=== PATIENT | male | born 1965 | race Caucasian/White ===

== ENCOUNTER 2017-04-29 13:11 | Inpatient (IN) | payer MEDICARE, MEDICAID ==
[2017-04-29] MEDS ORDERED: cefTRIAXone VIAL(*) 1,000 MG in NS 0.9% 50 ML* 50 ML IVPB SCH (13:21)
[2017-04-29] MEDS ORDERED: Acetaminophen TAB* 325 MG PO PRN (14:29)
[2017-04-29] MEDS: Azithromycin IV(*) 500 MG in NS 0.9% 250 ML* 250 ML IVPB SCH (16:05)
[2017-04-29] MEDS: Metoprolol Tartrate TAB* 100 MG TAB PO SCH ×2 (16:05→21:19)
[2017-04-29] MEDS: NS 0.9% 1000 ML* 1,000 ML IV SCH (16:25)
[2017-04-29] MEDS ORDERED: Warfarin TAB(*) 5 MG PO ONE (17:00)
[2017-04-29] MEDS ORDERED: Phytonadione Oral Solution* 5 MG/25 ML UDC PO ONE (21:00)
[2017-04-29] MEDS: QUEtiapine TAB* 25 MG PO SCH (21:18)
[2017-04-29] MEDS: Acyclovir* 400 MG TAB PO SCH (21:18)
[2017-04-29] MEDS: Mirtazapine TAB* 15 MG PO SCH (21:22)
[2017-04-29] MEDS ORDERED: NS 0.9% IV ONE (21:30)
[2017-04-29] MEDS ORDERED: PHYTONADIONE IV ONE (21:30)
[2017-04-30] MEDS: NS 0.9% 1000 ML* 1,000 ML IV SCH ×3 (00:42→17:40)
[2017-04-30 07:46] LABS: Hematocrit 29 % (42-52); Hemoglobin 9.4 g/dl (14.0-18.0); Mean Corpuscular HGB Conc 33 g/dl (31-36); Mean Corpuscular Hemoglobin 27 pg (27-31); Mean Corpuscular Volume 82 fL (80-94); Mean Platelet Volume 7 um3 (7.4-10.4); Red Blood Count 3.49 10^6/ul (4.0-5.4); Red Cell Distribution Width 16 % (10.5-15); White Blood Count 10.2 10^3/ul (3.5-10.8)
--- NOTE | 2017-04-30 07:46 | PN ---
Progress Note - Progress Note Date of Service: 04/30/17 SOAP: Subjective: feels better than yesterday. still coughing, more greenish today. eyes feel much better though. mild nose bleed last night, stopped quickly (INR 12 and received vitamin k). urine still dark. Objective: Vital Signs Temp Pulse Resp BP Pulse Ox 97.9 F 75 16 150/78 95 04/30/17 03:48 04/30/17 04:01 04/30/17 07:19 04/30/17 04:01 04/30/17 03:48 sitting up in nad perr eomi op dry rhonchi throughout, greater at left base s1 s2 nl soft nt +Bs no le edema A+O x 3, nonfocal neurological exam Laboratory Results - last 24 hr 04/29/17 04/29/17 04/29/17 16:30 16:30 16:30 INR (Anticoag Therapy) 11.04 H* APTT 90.2 H Lactic Acid 0.9 Uric Acid 7.5 04/29/17 19:22 INR (Anticoag Therapy) 12.86 H* APTT Lactic Acid Uric Acid Acetaminophen (Tylenol Tab*) 650 mg PO Q6H PRN PRN Reason: fever or pain Acyclovir (Zovirax Tab*) 400 mg PO BID COUNTS INCLUDE 234 BEDS AT THE [facility] Last Admin: 04/29/17 21:18 Dose: 400 mg Digoxin (Lanoxin Tab*) 0.0625 mg PO DAILY COUNTS INCLUDE 234 BEDS AT THE [facility] Sodium Chloride (Ns 0.9% 1000 Ml*) 1,000 mls @ 150 mls/hr IV PER RATE COUNTS INCLUDE 234 BEDS AT THE [facility] Last Admin: 04/30/17 00:42 Dose: 150 mls/hr Azithromycin 500 mg/ Sodium (Chloride) 250 mls @ 250 mls/hr IVPB Q24H COUNTS INCLUDE 234 BEDS AT THE [facility] Last Admin: 04/29/17 16:05 Dose: Not Given Ceftriaxone Sodium 1,000 mg/ (Dextrose) 50 mls @ 200 mls/hr IVPB DAILY@1300 COUNTS INCLUDE 234 BEDS AT THE [facility] Metoprolol Tartrate (Lopressor Tab*) 100 mg PO TID COUNTS INCLUDE 234 BEDS AT THE [facility] Last Admin: 04/29/17 21:19 Dose: 100 mg Mirtazapine (Remeron Tab*) 15 mg PO BEDTIME COUNTS INCLUDE 234 BEDS AT THE [facility] Last Admin: 04/29/17 21:22 Dose: 15 mg Omeprazole (Prilosec Cap*) 20 mg PO DAILY COUNTS INCLUDE 234 BEDS AT THE [facility] Pharmacy Profile Note (Coumadin Per Pharmacy*) 0 note FOLLOW UP .PER PHARMACY PROTOC COUNTS INCLUDE 234 BEDS AT THE [facility] PRN Reason: Protocol Quetiapine Fumarate (Seroquel Tab*) 25 mg PO BEDTIME COUNTS INCLUDE 234 BEDS AT THE [facility] Last Admin: 04/29/17 21:18 Dose: 25 mg Sertraline HCl (Zoloft*) 50 mg PO DAILY COUNTS INCLUDE 234 BEDS AT THE [facility] Assessment: 52 yo M w amyloidosis sp autoSCT now on maintenance velcade (renal failure precluding revlimid) presenting with fatigue, cough, weakness and dark urine and found to have acute on chronic renal failure, leukocytosis and coagulopathy. Though this is most consistent with a viral syndrome, he is significantly immunocompromised and I do agree with antibiotics for now. I would also like to get a flu swab. Plan: PNA: clinically appears to have a viral PNA or URI. CXR clear yesterday but rhonchorous on exam. will repeat xray today. notably procalcitonin slightly elevated and crp markedly elevated yesterday so reasonable to cover for bacterial sources -cont ceftriaxone and azithromycin -flu swab -urine strep and legionella Ags h/o afib: supratherapeutic INR sp vitamin K 1 mg IV and 5 mg po will recheck today, may need FFP cont digoxin and lopressor acute on chronic renal failure: likely prerenal given infection and poor PO intake agree with renal consultation, prior patient of Dr. Daniel cont hydration monitor urine output closely DNR but would try trial of intubation
[2017-04-30 08:05] LABS: BUN/Creatinine Ratio 12.6 (8-20); Calcium 8.8 mg/dL (8.6-10.3); EGFR African American 18.7 (>60); EGFR Non-African American 14.5 (>60); Globulin 2.9 g/dL (2-4); Total Bilirubin 0.3 mg/dL (0.2-1.0); Total Protein 5.9 g/dL (6.4-8.9)
[2017-04-30] MEDS: Digoxin TAB* 0.125 MG PO SCH (09:02)
[2017-04-30] MEDS: Sertraline* 50 MG TAB PO SCH (09:04)
[2017-04-30] MEDS: Metoprolol Tartrate TAB* 100 MG TAB PO SCH ×3 (09:04→21:11)
[2017-04-30] MEDS: Omeprazole CAP* 20 MG PO SCH (09:04)
[2017-04-30] MEDS: Acyclovir* 400 MG TAB PO SCH ×2 (09:04→21:10)
[2017-04-30 09:46] LABS: Digoxin 0.5 ng/ml (0.8-2.0)
--- NOTE | 2017-04-30 09:58 | RAD ---
INDICATION: Cough. Question pneumonia. History of myocardial infarction. Renal failure. COMPARISON: April 29, 2017 and November 18, 2016 TECHNIQUE: Dual energy PA and routine lateral views of the chest were obtained. REPORT: Mild reticulonodular prominence of the interstitial markings at the bilateral lower lung zones new compared with the November 18, 2016 chest radiograph. Negative for focal pulmonary lesion, pleural effusion, pneumothorax. The heart, pulmonary vasculature, and mediastinal contours are unremarkable. IMPRESSION: The constellation of findings is suspicious for potential bronchopneumonia given the clinical context.
[2017-04-30] MEDS: cefTRIAXone VIAL(*) 1,000 MG in D5W 50 ML BAG* 50 ML IVPB SCH (13:07)
[2017-04-30 13:26] LABS: Magnesium 1.8 mg/dL (1.9-2.7); Phosphorus 4.1 mg/dL (2.5-5.0)
[2017-04-30 14:13] LABS: Renal Sodium Excretion 1.29 %
[2017-04-30] MEDS: Azithromycin IV(*) 500 MG in NS 0.9% 250 ML* 250 ML IVPB SCH (14:33)
[2017-04-30] MEDS: Warfarin TAB(*) 2.5 MG PO SCH (17:14)
[2017-04-30] MEDS: QUEtiapine TAB* 25 MG PO SCH (21:10)
[2017-04-30] MEDS: Mirtazapine TAB* 15 MG PO SCH (21:11)
[2017-05-01] MEDS: NS 0.9% 1000 ML* 1,000 ML IV SCH ×3 (02:18→17:52)
[2017-05-01 05:56] LABS: Hematocrit 26 % (42-52); Hemoglobin 8.6 g/dl (14.0-18.0); Mean Corpuscular HGB Conc 33 g/dl (31-36); Mean Corpuscular Hemoglobin 27 pg (27-31); Mean Corpuscular Volume 83 fL (80-94); Mean Platelet Volume 7 um3 (7.4-10.4); Red Blood Count 3.13 10^6/ul (4.0-5.4); Red Cell Distribution Width 16 % (10.5-15); White Blood Count 7.8 10^3/ul (3.5-10.8)
[2017-05-01 06:51] LABS: Albumin 2.7 g/dL (3.2-5.2); Calcium 8.5 mg/dL (8.6-10.3); EGFR African American 19.3 (>60); Globulin 2.5 g/dL (2-4); Potassium 4.1 mmol/L (3.5-5.0); Total Bilirubin 0.2 mg/dL (0.2-1.0); Total Protein 5.2 g/dL (6.4-8.9)
--- NOTE | 2017-05-01 09:19 | PN ---
Progress Note - Progress Note Date of Service: 05/01/17 SOAP: Subjective: []Feeling very well, much better than on admission. Urine output improved overnight and a lot less dark. Has been walking around unit without difficulty. Eating well and drinking fluids. No pain. Normal BMs. Medications: Acetaminophen (Tylenol Tab*) 650 mg PO Q6H PRN PRN Reason: fever or pain Acyclovir (Zovirax Tab*) 400 mg PO BID [facility] Last Admin: 04/30/17 21:10 Dose: 400 mg Digoxin (Lanoxin Tab*) 0.0625 mg PO DAILY [facility] Last Admin: 04/30/17 09:02 Dose: 0.0625 mg Sodium Chloride (Ns 0.9% 1000 Ml*) 1,000 mls @ 150 mls/hr IV PER RATE [facility] Last Admin: 05/01/17 02:18 Dose: 150 mls/hr Azithromycin 500 mg/ Sodium (Chloride) 250 mls @ 250 mls/hr IVPB Q24H [facility] Last Admin: 04/30/17 14:33 Dose: 250 mls/hr Ceftriaxone Sodium 1,000 mg/ (Dextrose) 50 mls @ 200 mls/hr IVPB DAILY@1300 [facility] Last Admin: 04/30/17 13:07 Dose: 200 mls/hr Metoprolol Tartrate (Lopressor Tab*) 100 mg PO TID [facility] Last Admin: 04/30/17 21:11 Dose: 100 mg Mirtazapine (Remeron Tab*) 15 mg PO BEDTIME [facility] Last Admin: 04/30/17 21:11 Dose: 15 mg Omeprazole (Prilosec Cap*) 20 mg PO DAILY [facility] Last Admin: 04/30/17 09:04 Dose: 20 mg Quetiapine Fumarate (Seroquel Tab*) 25 mg PO BEDTIME [facility] Last Admin: 04/30/17 21:10 Dose: 25 mg Sertraline HCl (Zoloft*) 50 mg PO DAILY [facility] Last Admin: 04/30/17 09:04 Dose: 50 mg Warfarin Sodium (Coumadin Tab(*)) 2.5 mg PO DAILY@1700 [facility] PRN Reason: Protocol Last Admin: 04/30/17 17:14 Dose: 2.5 mg Objective: [] Vital Signs Temp Pulse Resp BP Pulse Ox 97.7 F 62 16 155/81 97 05/01/17 07:54 05/01/17 07:54 05/01/17 07:54 05/01/17 07:54 05/01/17 07:54 A&Ox3 HRR, S1S2, no murmur noted LS with rhonchi left lower lobe, right clear +BS, abd. soft and non-tender +PP=bilat., no edema noted Urine yellow, clear Laboratory Results - last 24 hr 04/30/17 04/30/17 04/30/17 07:39 12:27 12:35 WBC RBC Hgb Hct MCV MCH MCHC RDW Plt Count MPV Neut % (Auto) Lymph % (Auto) Crowley % (Auto) Eos % (Auto) Baso % (Auto) Absolute Neuts (auto) Absolute Lymphs (auto) Absolute Monos (auto) Absolute Eos (auto) Absolute Basos (auto) Absolute Nucleated RBC Nucleated RBC % INR (Anticoag Therapy) Sodium 135 137 Potassium 4.0 Chloride 108 Carbon Dioxide 16 L Anion Gap 11 BUN 54 H Creatinine 4.29 H 4.41 H Est GFR ( Amer) 18.7 Est GFR (Non-Af Amer) 14.5 BUN/Creatinine Ratio 12.6 Glucose 106 H Calcium 8.8 Phosphorus 4.1 Magnesium 1.8 L Total Bilirubin 0.30 AST 11 L ALT 11 Alkaline Phosphatase 89 Total Protein 5.9 L Albumin 3.0 L Globulin 2.9 Albumin/Globulin Ratio 1.0 Ur Random Creatinine 95.48 Ur Random Sodium 39 Renal Sodium Excretion 1.29 Digoxin 0.5 L Influenza A (Rapid) Negative Influenza B (Rapid) Negative 05/01/17 05/01/17 05/01/17 05:31 05:31 05:31 WBC 7.8 RBC 3.13 L Hgb 8.6 L Hct 26 L MCV 83 MCH 27 MCHC 33 RDW 16 H Plt Count 180 MPV 7 L Neut % (Auto) 77.2 Lymph % (Auto) 11.6 L Crowley % (Auto) 7.4 Eos % (Auto) 3.3 Baso % (Auto) 0.5 Absolute Neuts (auto) 6.0 Absolute Lymphs (auto) 0.9 L Absolute Monos (auto) 0.6 Absolute Eos (auto) 0.3 Absolute Basos (auto) 0 Absolute Nucleated RBC 0 Nucleated RBC % 0.1 INR (Anticoag Therapy) 3.04 H Sodium 136 Potassium 4.1 Chloride 111 Carbon Dioxide 15 L Anion Gap 10 BUN 50 H Creatinine 4.16 H Est GFR ( Amer) 19.3 Est GFR (Non-Af Amer) 15.0 BUN/Creatinine Ratio 12.0 Glucose 98 Calcium 8.5 L Phosphorus Magnesium Total Bilirubin 0.20 AST 14 ALT 13 Alkaline Phosphatase 85 Total Protein 5.2 L Albumin 2.7 L Globulin 2.5 Albumin/Globulin Ratio 1.1 Ur Random Creatinine Ur Random Sodium Renal Sodium Excretion Digoxin Influenza A (Rapid) Influenza B (Rapid) Intake & Output 04/29/17 04/30/17 05/01/17 05/02/17 06:59 06:59 06:59 06:59 Intake Total 2488 3068 Output Total 1350 1400 300 Balance 1138 1668 -300 Weight 192 lb 12.8 oz 196 lb 12.8 oz Intake: IV Fluids 2036 2348 NS (0.9%) 20368 IVPB 51 320 ABX - AZITHROMYCIN 320 phytonadione 51 Oral 400 400 Output: Urine 1350 1400 300 Other: Estimated Void Medium Large # Bowel Movements 0 0 # Voids 0 1 Assessment: []52 yo male admitted with Haemophilus Influenzae Pneumonia and acute on chronic renal failure that appears to be pre-renal, compensatory d/t resp. dysfunction, although urine sodium excretion is just >1. Slight improvement in renal function with hydration, notable improvement in resp. status on IV abx. Expect cont.'d improvement. Plan: []1. Pneumonia: cont. IV abx., dual therapy until sputum culture final. 2. Renal Failure: cont. IV fluids, enc. PO intake, follow I&Os, daily labs 3. Anti-coagulation: cont. daily INR, 2.5 mg warfarin tonight
[2017-05-01] MEDS: Digoxin TAB* 0.125 MG PO SCH (09:25)
[2017-05-01] MEDS: Sertraline* 50 MG TAB PO SCH (09:26)
[2017-05-01] MEDS: Omeprazole CAP* 20 MG PO SCH (09:26)
[2017-05-01] MEDS: Metoprolol Tartrate TAB* 100 MG TAB PO SCH ×3 (09:26→22:40)
[2017-05-01] MEDS: Acyclovir* 400 MG TAB PO SCH ×2 (09:26→22:39)
[2017-05-01] MEDS: cefTRIAXone VIAL(*) 1,000 MG in D5W 50 ML BAG* 50 ML IVPB SCH (13:51)
[2017-05-01] MEDS: Azithromycin IV(*) 500 MG in NS 0.9% 250 ML* 250 ML IVPB SCH (14:53)
[2017-05-01] MEDS: Warfarin TAB(*) 2.5 MG PO SCH (17:04)
[2017-05-01] MEDS: Nicotine GUM* 2 MG PO PRN (17:57)
[2017-05-01] MEDS: QUEtiapine TAB* 25 MG PO SCH (22:40)
[2017-05-01] MEDS: Mirtazapine TAB* 15 MG PO SCH (22:41)
[2017-05-02] MEDS: NS 0.9% 1000 ML* 1,000 ML IV SCH (02:50)
[2017-05-02] MEDS: Nicotine Patch Removal NOTE FOLLOW UP SCH (06:13)
[2017-05-02 07:16] LABS: Hematocrit 24 % (42-52); Mean Corpuscular HGB Conc 33 g/dl (31-36); Mean Corpuscular Hemoglobin 28 pg (27-31); Mean Corpuscular Volume 83 fL (80-94); Mean Platelet Volume 7 um3 (7.4-10.4); Red Cell Distribution Width 16 % (10.5-15); White Blood Count 7.6 10^3/ul (3.5-10.8)
[2017-05-02 07:19] LABS: Albumin 2.7 g/dL (3.2-5.2); BUN/Creatinine Ratio 10.1 (8-20); Calcium 8.4 mg/dL (8.6-10.3); EGFR African American 20.5 (>60); EGFR Non-African American 15.9 (>60); Globulin 2.3 g/dL (2-4); Phosphorus 4.6 mg/dL (2.5-5.0); Potassium 4.2 mmol/L (3.5-5.0); Total Bilirubin 0.2 mg/dL (0.2-1.0)
[2017-05-02 07:25] LABS: Add Diff/Slide Review? Slide Review Added; Comments Flag Yes
--- NOTE | 2017-05-02 08:36 | PN ---
Progress Note - Progress Note Date of Service: 05/02/17 SOAP: Subjective: feels better every day. 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 cough improving. Objective: Vital Signs Temp Pulse Resp BP Pulse Ox 98.3 F 59 18 158/85 97 05/02/17 08:08 05/02/17 08:08 05/02/17 08:08 05/02/17 08:08 05/02/17 08:08 sitting up in nad left eye deviated op moist CTA bl s1 s 2nl soft nt +Bs no le edema A+O x 3, nonfocal neurological exam Laboratory Results - last 24 hr 05/02/17 05/02/17 05/02/17 06:33 06:33 06:33 WBC 7.6 RBC 2.90 L Hgb 8.0 L Hct 24 L MCV 83 MCH 28 MCHC 33 RDW 16 H Plt Count 177 MPV 7 L Neut % (Auto) 78.2 Lymph % (Auto) 11.6 L Hale % (Auto) 6.3 Eos % (Auto) 3.4 Baso % (Auto) 0.5 Absolute Neuts (auto) 5.9 Absolute Lymphs (auto) 0.9 L Absolute Monos (auto) 0.5 Absolute Eos (auto) 0.3 Absolute Basos (auto) 0 Absolute Nucleated RBC 0 Nucleated RBC % 0 INR (Anticoag Therapy) 3.55 H Sodium 136 Potassium 4.2 Chloride 113 H Carbon Dioxide 14 L* Anion Gap 9 BUN 40 H Creatinine 3.96 H Est GFR ( Amer) 20.5 Est GFR (Non-Af Amer) 15.9 BUN/Creatinine Ratio 10.1 Glucose 98 Calcium 8.4 L Phosphorus 4.6 Total Bilirubin 0.20 AST 11 L ALT 12 Alkaline Phosphatase 80 Total Protein 5.0 L Albumin 2.7 L Globulin 2.3 Albumin/Globulin Ratio 1.2 Acetaminophen (Tylenol Tab*) 650 mg PO Q6H PRN PRN Reason: fever or pain Acyclovir (Zovirax Tab*) 400 mg PO BID [facility] Last Admin: 05/01/17 22:39 Dose: 400 mg Digoxin (Lanoxin Tab*) 0.0625 mg PO DAILY [facility] Last Admin: 05/01/17 09:25 Dose: 0.0625 mg Azithromycin 500 mg/ Sodium (Chloride) 250 mls @ 250 mls/hr IVPB Q24H [facility] Last Admin: 05/01/17 14:53 Dose: 250 mls/hr Ceftriaxone Sodium 1,000 mg/ (Dextrose) 50 mls @ 200 mls/hr IVPB DAILY@1300 [facility] Last Admin: 05/01/17 13:51 Dose: 200 mls/hr Sodium Bicarbonate 100 meq/ (Sodium Chloride) 1,000 mls @ 150 mls/hr IV PER RATE [facility] Magnesium Oxide (Magox 400 Tab*) 400 mg PO DAILY [facility] Metoprolol Tartrate (Lopressor Tab*) 100 mg PO TID [facility] Last Admin: 05/01/17 22:40 Dose: 100 mg Mirtazapine (Remeron Tab*) 15 mg PO BEDTIME [facility] Last Admin: 05/01/17 22:41 Dose: 15 mg Nicotine (Nicotine Patch 21 Mg/24 Hr*) 1 patch TRANSDERM DAILY@0800 [facility] Nicotine Polacrilex (Nicotine Gum*) 2 mg PO Q2H PRN PRN Reason: CRAVING Last Admin: 05/01/17 17:57 Dose: 2 mg Omeprazole (Prilosec Cap*) 20 mg PO DAILY [facility] Last Admin: 05/01/17 09:26 Dose: 20 mg Pharmacy Profile Note (Nicotine Patch Removal Note*) 1 note FOLLOW UP 0600 [facility] Last Admin: 05/02/17 06:13 Dose: Not Given Quetiapine Fumarate (Seroquel Tab*) 25 mg PO BEDTIME [facility] Last Admin: 05/01/17 22:40 Dose: 25 mg Sertraline HCl (Zoloft*) 50 mg PO DAILY [facility] Last Admin: 05/01/17 09:26 Dose: 50 mg Warfarin Sodium (Coumadin Tab(*)) 2.5 mg PO DAILY@1700 [facility] PRN Reason: Protocol Last Admin: 05/01/17 17:04 Dose: 2.5 mg Assessment: 52 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 Plan: Renal failure: discussed with Dr. Daniel by phone this am. will change fluids to 1/2NS w 2 amps sodium bicarbonate to buffer kidneys. will add magnesium oxide] cont to monitor urine output haemophilus influenza PNA: cont ceftriaxone and azithro clinically improving afib: rate controlled on digoxin and metoprolol cont warfarin 2.5 mg daily check inr tomorrow anemia: baseline anemia from amyloidosis and marrow transplant worsened by hydration will transfuse 1 unit today DNR but would be intubated
[2017-05-02] MEDS: Acyclovir* 400 MG TAB PO SCH ×2 (08:47→21:13)
[2017-05-02] MEDS: Omeprazole CAP* 20 MG PO SCH (08:47)
[2017-05-02] MEDS: Magnesium Oxide TAB* 400 MG PO SCH (08:48)
[2017-05-02] MEDS: Digoxin TAB* 0.125 MG PO SCH (08:48)
[2017-05-02] MEDS: Sertraline* 50 MG TAB PO SCH (08:48)
[2017-05-02] MEDS: Metoprolol Tartrate TAB* 100 MG TAB PO SCH ×3 (08:48→21:13)
[2017-05-02] MEDS: Nicotine PATCH 21 MG/24 HR* PATCH TRANSDERM SCH (08:49)
[2017-05-02] MEDS ORDERED: SODIUM BICARBONATE IV SCH ×2 (09:00)
[2017-05-02] MEDS ORDERED: NS IV SCH ×2 (09:00)
[2017-05-02] MEDS ORDERED: Sodium Bicarbonate (ANTACID)* 650 MG TAB PO SCH (09:00)
[2017-05-02] MEDS: cefTRIAXone VIAL(*) 1,000 MG in D5W 50 ML BAG* 50 ML IVPB SCH (12:58)
[2017-05-02] MEDS: Azithromycin IV(*) 500 MG in NS 0.9% 250 ML* 250 ML IVPB SCH (13:28)
[2017-05-02] MEDS: Sodium Bicarbonate 8.4% IV* 100 MEQ in NS 0.45% 1000 ML BAG* 1,000 ML IV SCH ×3 (15:11→22:26)
[2017-05-02] MEDS: Mirtazapine TAB* 15 MG PO SCH (21:13)
[2017-05-02] MEDS: QUEtiapine TAB* 25 MG PO SCH (21:13)
[2017-05-03] MEDS: Sodium Bicarbonate 8.4% IV* 100 MEQ in NS 0.45% 1000 ML BAG* 1,000 ML IV SCH ×2 (05:43→15:16)
[2017-05-03] MEDS: Nicotine Patch Removal NOTE FOLLOW UP SCH (05:44)
[2017-05-03 07:17] LABS: Hematocrit 27 % (42-52); Hemoglobin 9.2 g/dl (14.0-18.0); Mean Corpuscular HGB Conc 34 g/dl (31-36); Mean Corpuscular Hemoglobin 28 pg (27-31); Mean Corpuscular Volume 81 fL (80-94); Mean Platelet Volume 7 um3 (7.4-10.4); Red Blood Count 3.35 10^6/ul (4.0-5.4); Red Cell Distribution Width 15 % (10.5-15); White Blood Count 8.1 10^3/ul (3.5-10.8)
[2017-05-03 07:21] LABS: Add Diff/Slide Review? Slide Review Added; Comments Flag Yes
[2017-05-03 07:29] LABS: Albumin 2.8 g/dL (3.2-5.2); BUN/Creatinine Ratio 10.5 (8-20); Calcium 8.2 mg/dL (8.6-10.3); EGFR African American 22.7 (>60); EGFR Non-African American 17.6 (>60); Globulin 2.5 g/dL (2-4); Phosphorus 4.3 mg/dL (2.5-5.0); Potassium 3.9 mmol/L (3.5-5.0); Total Bilirubin 0.3 mg/dL (0.2-1.0); Total Protein 5.3 g/dL (6.4-8.9)
[2017-05-03] MEDS: Omeprazole CAP* 20 MG PO SCH (08:04)
[2017-05-03] MEDS: Sertraline* 50 MG TAB PO SCH (08:04)
[2017-05-03] MEDS: Acyclovir* 400 MG TAB PO SCH ×2 (08:04→22:35)
[2017-05-03] MEDS: Metoprolol Tartrate TAB* 100 MG TAB PO SCH ×3 (08:04→22:34)
[2017-05-03] MEDS: Magnesium Oxide TAB* 400 MG PO SCH (08:04)
[2017-05-03] MEDS: Digoxin TAB* 0.125 MG PO SCH (08:04)
[2017-05-03] MEDS: Nicotine PATCH 21 MG/24 HR* PATCH TRANSDERM SCH (08:05)
[2017-05-03] MEDS: Nicotine GUM* 2 MG PO PRN (11:33)
--- NOTE | 2017-05-03 11:45 | PN ---
Subjective Date of Service: 05/03/17 Interval History: Pt felt lousy last night as everytime he turned on his side he was bringing up phlegm. Now feels much better after that improved. Rubbed right eye, now bruised. INR to 2.9. [employer] improved to 3.62, positive 3.5L. Hypertensive occ to 190s last night. Walking. Urine now clear. Objective Active Medications: Acetaminophen (Tylenol Tab*) 650 mg PO Q6H PRN PRN Reason: fever or pain Acyclovir (Zovirax Tab*) 400 mg PO BID [facility] Last Admin: 05/03/17 08:04 Dose: 400 mg Digoxin (Lanoxin Tab*) 0.0625 mg PO DAILY [facility] Last Admin: 05/03/17 08:04 Dose: 0.0625 mg Azithromycin 500 mg/ Sodium (Chloride) 250 mls @ 250 mls/hr IVPB Q24H [facility] Last Admin: 05/02/17 13:28 Dose: 250 mls/hr Ceftriaxone Sodium 1,000 mg/ (Dextrose) 50 mls @ 200 mls/hr IVPB DAILY@1300 [facility] Last Admin: 05/02/17 12:58 Dose: 200 mls/hr Sodium Bicarbonate 100 meq/ (Sodium Chloride) 1,100 mls @ 150 mls/hr IV Q7H [facility] Last Admin: 05/03/17 05:43 Dose: 150 mls/hr Magnesium Oxide (Magox 400 Tab*) 400 mg PO DAILY [facility] Last Admin: 05/03/17 08:04 Dose: 400 mg Metoprolol Tartrate (Lopressor Tab*) 100 mg PO TID [facility] Last Admin: 05/03/17 08:04 Dose: 100 mg Mirtazapine (Remeron Tab*) 15 mg PO BEDTIME [facility] Last Admin: 05/02/17 21:13 Dose: 15 mg Nicotine (Nicotine Patch 21 Mg/24 Hr*) 1 patch TRANSDERM DAILY@0800 [facility] Last Admin: 05/03/17 08:05 Dose: 1 patch Nicotine Polacrilex (Nicotine Gum*) 2 mg PO Q2H PRN PRN Reason: CRAVING Last Admin: 05/03/17 11:33 Dose: 2 mg Omeprazole (Prilosec Cap*) 20 mg PO DAILY [facility] Last Admin: 05/03/17 08:04 Dose: 20 mg Pharmacy Profile Note (Nicotine Patch Removal Note*) 1 note FOLLOW UP 0600 [facility] Last Admin: 05/03/17 05:44 Dose: 1 note Quetiapine Fumarate (Seroquel Tab*) 25 mg PO BEDTIME [facility] Last Admin: 05/02/17 21:13 Dose: 25 mg Sertraline HCl (Zoloft*) 50 mg PO DAILY [facility] Last Admin: 05/03/17 08:04 Dose: 50 mg Vital Signs 05/02/17 05/02/17 05/02/17 12:56 12:59 15:57 Temperature 98.1 F 98.1 F 97.8 F Pulse Rate 54 51 57 Respiratory 16 16 Rate Blood Pressure 176/88 174/90 (mmHg) O2 Sat by Pulse 100 99 99 Oximetry 05/02/17 05/02/17 05/02/17 19:46 19:51 23:11 Temperature 97.8 F 97.5 F Pulse Rate 53 53 Respiratory 18 18 16 Rate Blood Pressure 192/95 178/90 190/95 (mmHg) O2 Sat by Pulse 99 99 Oximetry 05/02/17 05/03/17 05/03/17 23:19 03:37 07:15 Temperature Pulse Rate 54 Respiratory 16 Rate Blood Pressure 174/80 159/72 156/83 (mmHg) O2 Sat by Pulse 96 Oximetry 05/03/17 05/03/17 07:58 08:00 Temperature 98.3 F Pulse Rate 52 Respiratory 21 20 Rate Blood Pressure (mmHg) O2 Sat by Pulse 98 Oximetry Oxygen Devices in Use Now: None Appearance: NAD, sitting up in bed. Eyes: No Scleral Icterus, - - bloodshot right medial eye with bruising of skin around. strabismus left eye Ears/Nose/Mouth/Throat: NL Teeth, Lips, Gums, Clear Oropharnyx Neck: NL Appearance and Movements; NL JVP Respiratory: Symmetrical Chest Expansion and Respiratory Effort, Clear to Auscultation Cardiovascular: NL Sounds; No Murmurs; No JVD, RRR Abdominal: NL Sounds; No Tenderness; No Distention Extremities: No Edema, No Clubbing, Cyanosis Skin: No Rash or Ulcers, No Nodules or Sclerosis Neurological: Alert and Oriented x 3 Result Diagrams: 05/03/17 06:37 05/03/17 06:37 Additional Lab and Data: Laboratory Results - last 24 hr 05/02/17 05/03/17 05/03/17 06:33 06:37 06:37 WBC 8.1 RBC 3.35 L Hgb 9.2 L Hct 27 L MCV 81 MCH 28 MCHC 34 RDW 15 Plt Count 201 MPV 7 L Neut % (Auto) 81.4 Lymph % (Auto) 9.5 L [place] % (Auto) 5.8 Eos % (Auto) 2.6 Baso % (Auto) 0.7 Absolute Neuts (auto) 6.6 Absolute Lymphs (auto) 0.8 L Absolute Monos (auto) 0.5 Absolute Eos (auto) 0.2 Absolute Basos (auto) 0.1 Absolute Nucleated RBC 0 Nucleated RBC % 0 INR (Anticoag Therapy) 2.92 H Sodium Potassium Chloride Carbon Dioxide Anion Gap BUN Creatinine Est GFR ( Amer) Est GFR (Non-Af Amer) BUN/Creatinine Ratio Glucose Calcium Phosphorus Total Bilirubin AST ALT Alkaline Phosphatase Total Protein Albumin Globulin Albumin/Globulin Ratio Blood Type AB Negative Antibody Screen Negative Crossmatch See Detail 05/03/17 06:37 WBC RBC Hgb Hct MCV MCH MCHC RDW Plt Count MPV Neut % (Auto) Lymph % (Auto) [place] % (Auto) Eos % (Auto) Baso % (Auto) Absolute Neuts (auto) Absolute Lymphs (auto) Absolute Monos (auto) Absolute Eos (auto) Absolute Basos (auto) Absolute Nucleated RBC Nucleated RBC % INR (Anticoag Therapy) Sodium 137 Potassium 3.9 Chloride 110 Carbon Dioxide 19 L Anion Gap 8 BUN 38 H Creatinine 3.62 H Est GFR ( Amer) 22.7 Est GFR (Non-Af Amer) 17.6 BUN/Creatinine Ratio 10.5 Glucose 99 Calcium 8.2 L Phosphorus 4.3 Total Bilirubin 0.30 AST 11 L ALT 12 Alkaline Phosphatase 76 Total Protein 5.3 L Albumin 2.8 L Globulin 2.5 Albumin/Globulin Ratio 1.1 Blood Type Antibody Screen Crossmatch Microbiology and Other Data: Microbiology 04/29/17 16:30 Blood Venous Aerobic Blood Culture - Preliminary No Growth Day 3 04/29/17 16:30 Blood Venous Anaerobic Blood Culture - Preliminary No Growth Day 3 04/30/17 12:27 Urine Legionella Urinary Antigen - Final Negative Legionella 04/30/17 12:27 Urine Streptococcus pneumoniae Ag Screen - Final Negative S. pneumo Antigen 04/29/17 16:27 Urine Legionella Urinary Antigen - Final Negative Legionella 04/29/17 16:27 Urine Streptococcus pneumoniae Ag Screen - Final Negative S. pneumo Antigen 04/30/17 12:27 Nasal Influenza Types A,B Antigen (BERNARD) - Final Specimen received for Influenza A/B Molecular testing Assess/Plan/Problems-Billing Assessment: 52 yo PMH amyloidosis s/p autologous bone marrow transplant presenting with BRAVO on CKD, H Influenza pneumonia. H Influenze PNA - improving on azithromycin, ceftriaxone. BRAVO on CKD, resolved to baseline [employer] , acidosis improved - f/u Dr. Daniel recs - will decrease IVF from 150 to 50cc/hr for now. was 3.5L positive and hypertensive (prn hydralazine added) Afib - continue digoxin and metoprolol 100mb TID - INR to 2.9, restart 2.5mg coumadin tomorrow, INR daily Anemia 2/2 amyloidosis and aggressive IVF - s/p 1u prbc with good response CODE: DNR dispo: possible d/c tomorrow. Attending: Riki Ortega
[2017-05-03] MEDS ORDERED: hydrALAZINE IV* 20 MG/ML VIAL IV SLOW PU PRN (11:58)
[2017-05-03] MEDS: cefTRIAXone VIAL(*) 1,000 MG in D5W 50 ML BAG* 50 ML IVPB SCH (12:51)
[2017-05-03] MEDS: Azithromycin IV(*) 500 MG in NS 0.9% 250 ML* 250 ML IVPB SCH (14:08)
[2017-05-03] MEDS: QUEtiapine TAB* 25 MG PO SCH (22:35)
[2017-05-03] MEDS: Mirtazapine TAB* 15 MG PO SCH (22:35)
[2017-05-04] MEDS: Nicotine Patch Removal NOTE FOLLOW UP SCH (05:39)
[2017-05-04 05:50] LABS: Hematocrit 27 % (42-52); Hemoglobin 9.1 g/dl (14.0-18.0); Mean Corpuscular HGB Conc 34 g/dl (31-36); Mean Corpuscular Hemoglobin 28 pg (27-31); Mean Corpuscular Volume 81 fL (80-94); Mean Platelet Volume 7 um3 (7.4-10.4); Red Blood Count 3.33 10^6/ul (4.0-5.4); Red Cell Distribution Width 15 % (10.5-15); White Blood Count 8.4 10^3/ul (3.5-10.8)
[2017-05-04 05:52] LABS: Add Diff/Slide Review? Slide Review Added; Comments Flag Yes
[2017-05-04 06:07] LABS: Albumin 2.8 g/dL (3.2-5.2); BUN/Creatinine Ratio 10.2 (8-20); Calcium 8.3 mg/dL (8.6-10.3); EGFR African American 22.1 (>60); EGFR Non-African American 17.2 (>60); Globulin 2.4 g/dL (2-4); Phosphorus 4.4 mg/dL (2.5-5.0); Potassium 3.6 mmol/L (3.5-5.0); Total Bilirubin 0.3 mg/dL (0.2-1.0); Total Protein 5.2 g/dL (6.4-8.9)
[2017-05-04] MEDS: Omeprazole CAP* 20 MG PO SCH (10:19)
[2017-05-04] MEDS: Acyclovir* 400 MG TAB PO SCH (10:19)
[2017-05-04] MEDS: Digoxin TAB* 0.125 MG PO SCH (10:20)
[2017-05-04] MEDS: Magnesium Oxide TAB* 400 MG PO SCH (10:20)
[2017-05-04] MEDS: Sertraline* 50 MG TAB PO SCH (10:20)
[2017-05-04] MEDS: Metoprolol Tartrate TAB* 100 MG TAB PO SCH ×2 (10:20→13:57)
[2017-05-04] MEDS: Nicotine PATCH 21 MG/24 HR* PATCH TRANSDERM SCH (10:20)
--- NOTE | 2017-05-04 10:51 | DS ---
- Discharge Summary Admission Date: 04/29/17 Discharge Date: 05/04/17 Discharge Diagnosis: 1. Haemophilus Influenzae Pneumonia: improving, home on PO abx. 2. Acute on Chronic Renal Failure: felt to compensatory, returning to baseline 3. Multiple Myeloma: post autologous bone marrow transplant, therapy on hold for now Discharge Medications: 1. Augmentin 250 mg PO BID x4 days to complete 10 days of abx. 2. [id number] mg PO [id number] PRN fever or pain 3. Magnesium Oxide 400 mg PO daily 4. Nicotine junior 2 mg PO q2hrs PRN cravings 5. Nicotine patch 21 mg transdermal [id number] 6. Metoprolol Tartrate 100 mg PO TID 7. Quetiapine 25 mg PO qHS 8. Acyclovir 400 mg PO BID 9. Omeptrazole 20 mg PO qAM 10. Mirtazapine 15 mg PO qHS 11. Warfarin 5 mg PO q1700 12. Sertraline 50 mg PO daily 13. Rosuvastatin 20 mg PO daily 14. Cholecalciferol 1,000 u PO daily 15. Tramadol 50 mg PO q6hrs PRN pain 16. Digoxin 62.5mcg PO daily Hospital Course: Please see admission not for full H&P, however briefly Mr. Mccurdy is well known to our service d/t his unfortunate diagnosis of amloydosis now s/p Autologous bone marrow transplant. He had very poor tolerance of revlimid maintenance and most recently had started Velcade injections per recommendations from his transplant team. He presented to the office on feeling poorly over several days and new onset very dark, concentrated urine. In the office he was diagnosed with pneumonia clinically, though the chest x-ray was read as negative. He had STAT labs that revealed acute (on chronic) renal failure and he was admitted to the hospital for IV antibiotics and hydration. In the office he received his first dose of IV Ceftriaxone and Azithromycin for community acquired pneumonia. Blood cultures obtained on admission had no growth. Sputum culture in the office was positive for Haemophilus Influenza. A repeat chest x-ray following hydration confirmed PNA. Over the next 3 days he improved clinically, however, his CO2 trended downward with a low of 14 on 05/02. This was ultimately felt to be a hyperchorlemic metabolic acidosis following aggressive hydration in the setting of what was felt to be pre-renal compensatory acute on chronic renal failure. In the setting of his underlying amloydosis there is a question of tubular disease and therefore per Dr. Rogers recommendation he was buffered with the addition of sodium bicarb. Within 24 hours his CO2 had improved to 19, however he was having increased difficulty lying flat and with substantial fluid excess his IV fluids were decreased and he has remained stable over the last 24 hours. At this time his Creatinine is near his baseline, his CO2 is 22, and he feels his breathing is very stable as well. Following todays dose of IV abx he has received a total of 6 days IV abx. and will be d/cd home with Augmentin 250 mg PO BID (renal dosing) to complete 10 days abx. He will follow-up in our office on 05/[address] Whelan to have repeat labs and determine further plan of care. He will be d/cd home without oral bi-carb per Dr. Rogers recommendation and has been counseled on good PO hydration as well as monitoring for any changes. He will call Dr. Daniel's office for follow-up in the next week or two. Plan of care was reviewed at length and all questions answered. >40 min spent with >50% face to face counseling
[2017-05-04 12:05] VITALS: BP 162/98
[2017-05-04] MEDS: Azithromycin IV(*) 500 MG in NS 0.9% 250 ML* 250 ML IVPB SCH (12:30)
[2017-05-04] MEDS: cefTRIAXone VIAL(*) 1,000 MG in D5W 50 ML BAG* 50 ML IVPB SCH (13:49)
[2017-05-04] MEDS: Sodium Bicarbonate 8.4% IV* 100 MEQ in NS 0.45% 1000 ML BAG* 1,000 ML IV SCH (14:59)
== END 2017-05-04 15:00 | disposition home or self-care (01) | DRG 194 ==
LOC: MED 15:09
PROVIDERS: ADMIT Internal Medicine Hematology & Oncology; ATTEND Internal Medicine Hematology & Oncology
PROC: 30233N1 Transfusion of Nonautologous Red Blood Cells into Peripheral Vein, Percutaneous Approach (ICD-10-PCS; principal; 2017-05-02)
DX: J10.08 Influenza due to other identified influenza virus with other specified pneumonia (principal); N17.9 Acute kidney failure, unspecified; N18.4 Chronic kidney disease, stage 4 (severe); E85.89 Other amyloidosis; Z94.81 Bone marrow transplant status; I48.91 Unspecified atrial fibrillation; J18.8 Other pneumonia, unspecified organism; Z66 Do not resuscitate; I12.9 Hypertensive chronic kidney disease with stage 1 through stage 4 chronic kidney disease, or unspecified chronic kidney disease; E78.5 Hyperlipidemia, unspecified; F17.220 Nicotine dependence, chewing tobacco, uncomplicated; D64.9 Anemia, unspecified; Z88.0 Allergy status to penicillin; Z88.8 Allergy status to other drugs, medicaments and biological substances; Z79.01 Long term (current) use of anticoagulants; Z79.899 Other long term (current) drug therapy; Z80.1 Family history of malignant neoplasm of trachea, bronchus and lung; Z80.41 Family history of malignant neoplasm of ovary; Z80.0 Family history of malignant neoplasm of digestive organs
CPT/HCPCS: 36415; 71020; 80053; 80162; 81003; 81015; 82570; 83605; 83735; 84100; 84145; 84300; 84550; 85025; 85610; 85730; 86140; 86850; 86900; 86901; 86922; 87040; 87070; 87205; 87502; 87899; 99223; 99232; 99233; 99239; A9270-GY; J0360; J0456; J0696; J3430; P9040

== ENCOUNTER 2017-10-16 08:07 | Emergency (ER) | payer MEDICARE, MEDICAID ==
[2017-10-16] MEDS ORDERED: fentaNYL* 50 MCG/ML 2 ML VIAL (100 MCG VIAL) ONE ×2 (08:11→08:22)
[2017-10-16] MEDS ORDERED: NS 0.9% 1000 ML*IV.FLUID IV ONE (08:13)
[2017-10-16] MEDS ORDERED: fentaNYL* 50 MCG/ML 2 ML VIAL (100 MCG VIAL) IV SLOW PU ONE ×5 (08:13→10:52)
--- NOTE | 2017-10-16 08:33 | RAD ---
HISTORY: Chest pain COMPARISONS: April 30, 2017 VIEWS: 1: frontal portable view of the chest at 8:20 AM. The left costophrenic angle is cut off. FINDINGS: LINES AND TUBES: None. CARDIOMEDIASTINAL SILHOUETTE: The cardiomediastinal silhouette is normal for portable technique. PLEURA: The right costophrenic angle is sharp. The left costophrenic angle is cut off. LUNG PARENCHYMA: The lungs are clear. ABDOMEN: The upper abdomen is clear. There is no subphrenic gas. BONES AND SOFT TISSUES: No bone or soft tissue abnormalities are noted. IMPRESSION: LIMITED STUDY. NO ACTIVE CARDIOPULMONARY DISEASE.
[2017-10-16 08:35] LABS: ABS Basophils 0.2 10^3/ul (0-0.2); ABS Eosinophils 0.3 10^3/ul (0-0.6); ABS Monocytes 0.7 10^3/ul (0-0.8); ABS Neutrophils 10.6 10^3/ul (1.5-7.7); ABS Nucleated RBC 0 10^3/ul; Eosinophil % 1.9 % (0-6); Hematocrit 18 % (42-52); Hemoglobin 5.9 g/dl (14.0-18.0); Lymphocyte % 20.4 % (25-47); Mean Corpuscular HGB Conc 33 g/dl (31-36); Mean Corpuscular Hemoglobin 29 pg (27-31); Mean Corpuscular Volume 89 fL (80-94); Mean Platelet Volume 7.4 um3 (7.4-10.4); Nucleated Red Blood Cells % 0; Platelet Count 319 10^3/ul (150-450); Red Blood Count 2.05 10^6/ul (4.0-5.4); Red Cell Distribution Width 17 % (10.5-15); White Blood Count 14.9 10^3/ul (3.5-10.8)
[2017-10-16 08:38] LABS: INR 1.08 (0.77-1.02)
[2017-10-16 08:47] LABS: EGFR Non-African American 10.6 (>60)
[2017-10-16] MEDS ORDERED: fentaNYL PCA* 20 ML PCA SCH (09:00)
[2017-10-16] MEDS ORDERED: KETAMINE HCL* 50 MG/ML 10 ML VIAL IV ONE (09:03)
--- NOTE | 2017-10-16 09:04 | RAD ---
Indication: Left flank pain and chest pain. CT of the chest, abdomen and pelvis was performed without IV contrast administration. Coronal and sagittal reconstructed images were obtained. The inferior thyroid lobes are unremarkable. No mediastinal or hilar adenopathy is noted. The heart demonstrates no pericardial effusion. There is no mediastinal or hilar adenopathy. The heart demonstrates moderate-sized pericardial effusion. Dilated esophagus is noted. Moderate left-sided pleural effusion is noted. Airspace disease in the left lower lobe is noted. Right basilar airspace disease and small right pleural effusion is noted. The liver is normal in size. No focal lesions or intrahepatic ductal dilatation is noted. Gallbladder demonstrates no calcified gallstones. The pancreas demonstrates no mass or pancreatic ductal dilatation. No adrenal masses are noted. There is a large perinephric hematoma with extensive stranding surrounding the left kidney. The fact size in the perinephric hematoma cannot be adequately evaluated due to lack of IV contrast. No dilated loops of bowel are noted. The colon is filled with stool. CT of the pelvis demonstrates retroperitoneal hematoma extending into the left pelvic sidewall. Urinary bladder is unremarkable. Moderate amount of free fluid is noted in the cul-de-sac. The fluid has a high density value of approximately 35 Hounsfield units. This may represent hemoperitoneum. The aorta demonstrates no evidence of abnormal dilatation. No aneurysmal dilatation is identified. Common and external iliac arteries are unremarkable. IMPRESSION: There is a moderate to large pericardial effusion. There is small to moderate left pleural effusion with likely atelectasis in left lower lobe. Small right pleural effusion is noted. There is a large left perinephric hematoma with extension of the hematoma into the pelvis. Patient status post left hip replacement. No evidence of aortic aneurysm is noted. Findings discussed with Dr. Aguilera at 9:01 AM
[2017-10-16] MEDS ORDERED: NS 0.9% 1000 ML* 1,000 ML IV ONE (10:13)
[2017-10-16] MEDS ORDERED: NS 0.9% 1000 ML* 2,000 ML IV ONE (10:20)
[2017-10-16] MEDS ORDERED: Lidocaine 2% JELLY* 6 ML JELLY TOPICAL ONE (10:52)
[2017-10-16 11:04] LABS: Hematocrit 13 % (42-52); Hemoglobin 4.1 g/dl (14.0-18.0)
[2017-10-16] MEDS ORDERED: HYDROmorphone INJ* 2 MG/ML CARPUJECT SYRINGE IV SLOW PU ONE (11:04)
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
[2017-10-16 12:19] VITALS: BP 112/71
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
== END 2017-10-16 11:57 | disposition short-term general hospital (02) ==
LOC: ED 08:07
DX: R57.1 Hypovolemic shock (principal); S37.012A Minor contusion of left kidney, initial encounter; E78.5 Hyperlipidemia, unspecified; I10 Essential (primary) hypertension; E85.9 Amyloidosis, unspecified; Z79.01 Long term (current) use of anticoagulants; N28.9 Disorder of kidney and ureter, unspecified; F17.290 Nicotine dependence, other tobacco product, uncomplicated; C90.00 Multiple myeloma not having achieved remission; I31.3 Pericardial effusion (noninflammatory); I25.9 Chronic ischemic heart disease, unspecified; I51.7 Cardiomegaly; Z87.828 Personal history of other (healed) physical injury and trauma; Z98.890 Other specified postprocedural states; X58.XXXA Exposure to other specified factors, initial encounter; Y92.9 Unspecified place or not applicable
CPT/HCPCS: 36415; 71045; 71250; 74176; 80053; 80162; 83605; 84484; 85014; 85018; 85025; 85610; 86850; 86900; 86901; 86905; 86922; 93005; 96360; 96374; 96375; 96376; 99284; 99285; J3010; P9016; P9040

== ENCOUNTER 2018-04-01 07:05 | Inpatient (IN) | payer MEDICARE, MEDICAID ==
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
[2018-04-01 08:45] LABS: Hematocrit 21 % (42-52); Hemoglobin 7.1 g/dl (14.0-18.0); Mean Corpuscular HGB Conc 33 g/dl (31-36); Mean Corpuscular Hemoglobin 31 pg (27-31); Mean Corpuscular Volume 94 fL (80-94); Platelet Count 101 10^3/ul (150-450); Red Blood Count 2.25 10^6/ul (4.00-5.40); Red Cell Distribution Width 15 % (10.5-15)
[2018-04-01] MEDS: NS 0.9% 1000 ML* 2,000 ML IV ONE (08:45)
[2018-04-01 09:01] LABS: EGFR Non-African American 7.5 (>60)
[2018-04-01 09:05] LABS: INR 1.18 (0.77-1.02)
--- NOTE | 2018-04-01 09:08 | RAD ---
HISTORY: SEPSIS COMPARISONS: April 30, 2017, CT dated October 16, 2017 VIEWS: 4: Frontal dual-energy and lateral views of the chest. FINDINGS: CARDIOMEDIASTINAL SILHOUETTE: The cardiomediastinal silhouette is normal. ALLI: The alli are normal. PLEURA: The costophrenic angles are sharp. No pleural abnormalities are noted. LUNG PARENCHYMA: There is been interval development of confluent alveolar opacification of the right upper lobe and right perihilar lung. ABDOMEN: The upper abdomen is clear. There is no subphrenic gas. BONES AND SOFT TISSUES: No bone or soft tissue abnormalities are noted. OTHER: None. IMPRESSION: RIGHT PERIHILAR AND UPPER LOBE CONSOLIDATION. RECOMMEND FOLLOW-UP UNTIL RESOLUTION TO EXCLUDE UNDERLYING PULMONARY PARENCHYMAL PATHOLOGY.
[2018-04-01] MEDS ORDERED: Cefepime 2 GM in Dextrose(*) 2 GM/50 ML BAG IV ONE (09:34)
[2018-04-01] MEDS ORDERED: Ciprofloxacin 400MG IVPREMIX(* 400 MG/200 ML BAG IVPB ONE (09:34)
[2018-04-01] MEDS ORDERED: NS 0.9% 1000 ML* 1,000 ML IV ONE (09:35)
[2018-04-01] MEDS ORDERED: Sodium Polystyrene ORAL.SOL* 15 GM/60 ML BTL PO ONE ×3 (09:39→17:22)
[2018-04-01 09:45] LABS: Urine Appearance Cloudy; Urine Blood 3+ (Negative); Urine Color Yellow; Urine Ketones Negative (Negative); Urine Protein 3+(>=500 mg/dL) (Negative); Urine Red Blood Cell 1+(3-5/hpf) (Absent); Urine Specific Gravity 1.012 (1.010-1.030); Urine Urobilinogen Negative (Negative); Urine White Blood Cell 1+(6-10/hpf) (Absent)
[2018-04-01] MEDS ORDERED: traMADol TAB* 50 MG PO ONE (10:25)
[2018-04-01] MEDS ORDERED: traMADol TAB* 50 MG ONE (10:26)
[2018-04-01] MEDS ORDERED: Calcium Gluconate INJ* 2 GM in NS 0.9% 100 ML* 100 ML IVPB ONE (10:52)
[2018-04-01 11:17] LABS: ABS Basophils 0 10^3/ul (0-0.2); ABS Eosinophils 0 10^3/ul (0-0.6); ABS Lymphocytes 0.3 10^3/ul (1.0-4.8); ABS Monocytes 0.4 10^3/ul (0-0.8); ABS Neutrophils 23.3 10^3/ul (1.5-7.7); ABS Nucleated RBC 0 10^3/ul; Eosinophil % 0.1 % (0-6); Lymphocyte % 1.3 % (25-47); Nucleated Red Blood Cells % 0
[2018-04-01] MEDS ORDERED: Morphine INJ* 4 MG/ML 1 ML SYRINGE (NEW SYRINGE VERSION) IV ONE (12:50)
[2018-04-01] MEDS ORDERED: Ondansetron INJ* 2 MG/ML VIAL IV ONE (12:50)
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
[2018-04-01] MEDS ORDERED: Albuterol 2.5 MG/3 ML NEB.SOL* (0.083%) INH PRN (13:57)
[2018-04-01 14:27] LABS: EGFR Non-African American 7.9 (>60)
[2018-04-01] MEDS: Azithromycin IV(*) 500 MG in NS 0.9% 250 ML* 250 ML IVPB SCH (14:51)
[2018-04-01] MEDS ORDERED: SODIUM BICARBONATE IV SCH ×2 (15:00)
[2018-04-01] MEDS ORDERED: D5W IV SCH ×2 (15:00)
[2018-04-01] MEDS ORDERED: D5W 1000 ML BAG* 850 ML with Sodium Bicarbonate 8.4% IV* 150 MEQ IV SCH ×2 (15:00)
[2018-04-01] MEDS ORDERED: oxyCODONE/Acetamin 5/325 MG* TAB PO ONE (15:24)
[2018-04-01] MEDS: Sodium Bicarbonate (ANTACID)* 650 MG TAB PO SCH ×2 (15:28→20:40)
[2018-04-01] MEDS ORDERED: cefTRIAXone(*) 1 GM in NS 0.9% 50 ML* 50 ML IVPB ONE (15:46)
[2018-04-01] MEDS: Sodium Bicarbonate 8.4% IV* 150 MEQ in D5W 1000 ML BAG* 1,000 ML IV SCH (15:55)
[2018-04-01] MEDS ORDERED: Morphine VIAL* 4 MG/ML VIAL (1 ml vial) IV PRN (17:22)
--- NOTE | 2018-04-01 17:36 | PN ---
Progress Note - Progress Note Date of Service: 04/01/18 Note: noted strept pneum ag + cont ceftriaxone; cont azithro till cultures neg tomorrow likely will be okay with just ceftriaxone 1gm daily x5 days. kenia frye
[2018-04-01] MEDS: Acyclovir* 400 MG TAB PO SCH (20:38)
[2018-04-01] MEDS: QUEtiapine TAB* 25 MG PO SCH (20:39)
[2018-04-01 20:42] LABS: Hematocrit 20 % (42-52); Hemoglobin 6.7 g/dl (14.0-18.0)
[2018-04-01 20:58] LABS: EGFR Non-African American 7.8 (>60)
[2018-04-02] MEDS: Sodium Bicarbonate 8.4% IV* 150 MEQ in D5W 1000 ML BAG* 1,000 ML IV SCH ×2 (05:09→15:33)
[2018-04-02 07:19] LABS: Hematocrit 23 % (42-52); Hemoglobin 7.6 g/dl (14.0-18.0); Mean Corpuscular HGB Conc 33 g/dl (31-36); Mean Corpuscular Hemoglobin 31 pg (27-31); Mean Corpuscular Volume 92 fL (80-94); Mean Platelet Volume 7.3 um3 (7.4-10.4); Platelet Count 89 10^3/ul (150-450); Red Blood Count 2.47 10^6/ul (4.00-5.40); Red Cell Distribution Width 16 % (10.5-15); White Blood Count 14.2 10^3/ul (3.5-10.8)
[2018-04-02] MEDS: Acyclovir* 400 MG TAB PO SCH (08:29)
[2018-04-02] MEDS: Sodium Bicarbonate (ANTACID)* 650 MG TAB PO SCH ×3 (08:30→21:50)
[2018-04-02] MEDS: Omeprazole CAP* 20 MG PO SCH (08:31)
[2018-04-02] MEDS: amLODIPine TAB* 5 MG PO SCH (08:31)
[2018-04-02] MEDS: Cholecalciferol TAB* 1000 UNITS PO SCH (08:31)
[2018-04-02] MEDS: Sertraline* 50 MG TAB PO SCH (08:32)
[2018-04-02] MEDS ORDERED: Cefepime ADVAN(*) 2 GM ADDV.VIAL IVPB SCH (09:00)
[2018-04-02] MEDS: Azithromycin IV(*) 500 MG in NS 0.9% 250 ML* 250 ML IVPB SCH (14:35)
--- NOTE | 2018-04-02 16:39 | ECHO ---
Patient: LUCIE MACKEY [facility] Rec#: [id number] : 1965 Date: 04/02/2018 Age: 52y Height: 180 cm / 70.9 in Weight: 89.6 kg / 197.5 lbs Sex: M BSA: 2.09 Room#: [facility] Admit Date#: 04/01/2018 Type: Inpatient Referring: Will Flores Reading: Myles Encarnacion MD Recorder Helper Seismograph: Ani Marin RN RDCS CC: Constantino Dawn MD Transthoracic Echocardiogram Indication: Bacteremia BP: 135/57 HR: 84 Rhythm: NSR Findings History: HTN, HLD, multiple myeloma, chemotherapy, amyloidosis Technical Comments: The study quality is fair. Completed at 1530. Left Ventricle: The left ventricular chamber size is normal. Moderate to severe concentric left ventricular hypertrophy is observed. There is a prominent septal knuckle.measuring 2.2 cm. There is turbulence and increased velocities in the LVOT. Global left ventricular wall motion and contractility are within normal limits. There is normal left ventricular systolic function. The estimated ejection fraction is greater than 65%. Abnormal left ventricular diastolic function is observed. The left ventricular diastolic filling pattern is consistent with pseudonormalization. Left Atrium: The left atrium is moderately dilated. Right Ventricle: The right ventricle wall thickness is mildly increased.,6 cm. The right ventricular cavity size is normal. The right ventricular global systolic function is normal. Right Atrium: The right atrium is mildly dilated. Aortic Valve: The aortic valve is trileaflet. The aortic valve leaflets are mildly thickened. There is aortic annular calcification. There is no evidence of aortic regurgitation. There is no evidence of aortic stenosis. There is no aortic vegetation present. Mitral Valve: The mitral valve leaflets are mildly thickened. Mitral valve leaflet mobility is mildly restricted. There is mild mitral regurgitation. There is borderline mitral stenosis. No vegetation is observed on the mitral valve. Tricuspid Valve: The tricuspid valve leaflets are normal. There is trace to mild tricuspid regurgitation. Unable to estimate the right ventricular systolic pressure. There is no tricuspid stenosis. No vegetation is observed on the tricuspid valve. Pulmonic Valve: The pulmonic valve appears normal. There is a trace pulmonic regurgitation. There is no pulmonic stenosis. No vegetation is observed on the pulmonic valve. Pericardium: A trivial pericardial effusion is visualized. There are no signs of significant hemodynamic compromise. Aorta: There is no dilatation of the ascending aorta. There is no dilatation of the aortic arch. There is no dilation of the aortic root. Pulmonary Artery: The main pulmonary artery appears normal. Venous: The inferior vena cava appears normal in size. There is a greater than 50% respiratory change in the inferior vena cava dimension. Conclusions Moderate to severe concentric left ventricular hypertrophy is observed. There is a prominent septal knuckle.measuring 2.2 cm. There is turbulence and increased velocities in the LVOT without significant obstruction. The estimated ejection fraction is greater than 65%. The left atrium is moderately dilated. The right ventricle wall thickness is mildly increased. The right atrium is mildly dilated. The aortic valve leaflets are mildly thickened. There is mild mitral regurgitation. The mitral valve leaflets are mildly thickened. Mitral valve leaflet mobility is mildly restricted. There is mild mitral regurgitation. There is trace to mild tricuspid regurgitation. A trivial pericardial effusion is visualized. There are no signs of significant hemodynamic compromise. Similar to 09/2017. Measurements Name Value Normal Range RVIDd (AP) 2D 3.2 cm (0.9 - 2.6) RVDdMajor (2D) 4.1 cm (2.2 - 4.4) RVAW (2D) 0.7 cm (0.2 - 0.5) RAd ISD 4CH 5.3 cm (3.4 - 4.9) RA (A4C)W 4.1 cm (2.9 - 4.6) IVSd (2D) 1.7 cm (0.6 - 1) LVPWd (2D) 1.7 cm (0.6 - 1) LVIDd (2D) 5 cm (3.6 - 5.4) LVIDs (2D) 2.6 cm - LV FS (2D) 48 % (25 - 45) Aortic Annulus 2.5 cm (1.4 - 2.6) Ao root diameter (2D) 3.3 cm (2.1 - 3.5) Ascending Ao 2.9 cm (2.1 - 3.4) Aortic arch 2.8 cm (1.8 - 3.4) LA dimension (AP) 2D 4.8 cm (2.3 - 3.8) LAd ISD 4CH 6.5 cm (2.9 - 5.3) LA ISD 4CH W 5.1 cm (2.5 - 4.5) Name Value Normal Range LA ESV BP (A/L) index 45 ml/m2 - Name Value Normal Range MV E-wave Vmax 1.3 m/sec - MV deceleration time 204 msec - MV A-wave Vmax 0.94 m/sec - MV E:A ratio 1.4 ratio - LV septal e' Vmax 0.06 m/sec - LV lateral e' Vmax 0.1 m/sec - LV E:e' septal ratio 21.7 ratio - LV E:e' lateral ratio 13 ratio - Name Value Normal Range AV Vmax 1.9 m/sec - AV VTI 45.6 cm - AV peak gradient 14 mmHg - AV mean gradient 8 mmHg - LVOT Vmax 1.5 m/sec - LVOT VTI 32.1 cm - LVOT peak gradient 8 mmHg - LVOT mean gradient 6 mmHg - MALENA Vmax 1.1 m/sec - Name Value Normal Range IVC diameter 1.7 cm - Name Value Normal Range PV Vmax 1.3 m/sec -
[2018-04-02] MEDS: cefTRIAXone(*) 1 GM in NS 0.9% 50 ML* 50 ML IVPB SCH (17:53)
--- NOTE | 2018-04-02 18:18 | PN ---
Subjective Date of Service: 04/02/18 Interval History: Pt seen and examined. Meds and labs reviewed. CC: N/A ROS: Denied MANNING/dizziness, F/C, N/V, CP, SOB, increased cough, sputum production , abd pain, diarrhea, constipation, dysuria, myalgias, arthralgias, throat pain , and new skin lesions. The rest of the 14 point ROS are unremarkable. PHYSICAL EXAM: GEN APPEARANCE: Awake, not in acute distress HEENT: NC/AT, PERRLA, moist oral mucosa, (-) throat erythema NECK: Soft, supple, (-) cervical LAD, (-)JVD HEART: S1S2 WNL, RRR, No MRG CHEST: CTA, BL, GAE, No W/R/R ABD: Soft, ND/NT, NABS 4x Q EXT: No C/C/E SKIN: Warm to touch PSYCH: No active psychosis, hallucinations, depression, SI/HI Objective Active Medications: Acyclovir (Zovirax Tab*) 200 mg PO BID [facility] Last Admin: 04/02/18 08:29 Dose: 200 mg Albuterol (Ventolin 2.5 Mg/3 Ml Neb.Anni*) 2.5 mg INH Q4H PRN PRN Reason: SOB/WHEEZING Amlodipine Besylate (Norvasc Tab*) 10 mg PO DAILY [facility] Last Admin: 04/02/18 08:31 Dose: 10 mg Cholecalciferol (Vitamin D Tab*) 2,000 units PO DAILY [facility] Last Admin: 04/02/18 08:31 Dose: 2,000 units Ceftriaxone Sodium 1 gm/ (Sodium Chloride) 50 mls @ 200 mls/hr IVPB Q24H [facility] Stop: 04/05/18 15:14 Last Admin: 04/02/18 17:53 Dose: 200 mls/hr Azithromycin 500 mg/ Sodium (Chloride) 250 mls @ 250 mls/hr IVPB Q24H [facility] Stop: 04/05/18 14:59 Last Admin: 04/02/18 14:35 Dose: 250 mls/hr Sodium Bicarbonate 150 meq/ (Dextrose) 1,150 mls @ 100 mls/hr IV Q11H [facility] Last Admin: 04/02/18 15:33 Dose: 100 mls/hr Morphine Sulfate (Morphine Vial*) 2 mg IV Q4H PRN PRN Reason: PAIN Omeprazole (Prilosec Cap*) 20 mg PO DAILY [facility] Last Admin: 04/02/18 08:31 Dose: 20 mg Quetiapine Fumarate (Seroquel Tab*) 25 mg PO BEDTIME [facility] Last Admin: 04/01/18 20:39 Dose: 25 mg Sertraline HCl (Zoloft*) 50 mg PO DAILY [facility] Last Admin: 04/02/18 08:32 Dose: 50 mg Sodium Bicarbonate (Sodium Bicarbonate (Antacid)*) 1,300 mg PO TID [facility] Last Admin: 04/02/18 14:35 Dose: 1,300 mg Vital Signs - 8 hr 04/02/18 04/02/18 11:49 15:27 Temperature 98.4 F 98.0 F Pulse Rate 94 89 Respiratory 16 20 Rate Blood Pressure 135/79 146/70 (mmHg) O2 Sat by Pulse 98 90 Oximetry Oxygen Devices in Use Now: Nasal Cannula Result Diagrams: 04/02/18 06:20 04/02/18 06:20 Microbiology and Other Data: Microbiology 04/02/18 12:12 Gram Stain - Final Sputum 04/01/18 08:30 Aerobic Blood Culture - Preliminary Blood Venous Anaerobic Blood Culture - Preliminary 04/01/18 08:27 Aerobic Blood Culture - Preliminary Blood Venous Anaerobic Blood Culture - Preliminary 04/01/18 08:49 Urine Culture - Final Urine 04/01/18 13:38 Stool Occult Blood (BERNARD) - Final Stool 04/01/18 16:23 Influenza Types A,B Antigen - Final Nasopharyngeal Specimen received for Influenza A/B Molecular testing 04/01/18 08:49 Legionella Urinary Antigen - Final Urine Negative Legionella Antigen Streptococcus pneumoniae Ag Screen - Final Positive S. Pneumo Antigen Assess/Plan/Problems-Billing Assessment: - Patient Problems (1) Pneumonia Current Visit: Yes Status: Acute Code(s): J18.9 - PNEUMONIA, UNSPECIFIED ORGANISM SNOMED Code(s): 591538031 Comment: -Continue Rocephin and Azithromycin -Urine Ag and blood culture: (+) S. pneumoniae---will await sensitivities -2Decho reveals diastolic dysfunction likely due to hypertensive heart disease; no wall motion abnormalities -Mildly elevated troponin likely due to demand -Will continue to trend troponin -Pt not normally on O2 at home but currently on 3L O2 NC (2) HTN (hypertension) Current Visit: Yes Status: Acute Code(s): I10 - ESSENTIAL (PRIMARY) HYPERTENSION SNOMED Code(s): 83694628 Comment: -Continue Amlodipine -continue watchful waiting (3) CKD (chronic kidney disease) Current Visit: Yes Status: Acute Code(s): N18.9 - CHRONIC KIDNEY DISEASE, UNSPECIFIED SNOMED Code(s): 961901480 Comment: -Likely multifactorial from hx of multiple myeloma with pernephric hematoma as well as HTN -Will consult renal on Thursday when they are available -D/W Dr. Flores (4) DVT prophylaxis Current Visit: No Status: Acute Code(s): XHW3662 - SNOMED Code(s): 147954885 Comment: -Continue SCDs Status and Disposition: -For PT eval
[2018-04-02] MEDS: QUEtiapine TAB* 25 MG PO SCH (21:50)
[2018-04-03] MEDS: Acyclovir* 400 MG TAB PO SCH ×3 (00:50→21:48)
[2018-04-03] MEDS: Sodium Bicarbonate 8.4% IV* 150 MEQ in D5W 1000 ML BAG* 1,000 ML IV SCH (00:52)
[2018-04-03 06:47] LABS: ABS Basophils 0.1 10^3/ul (0-0.2); ABS Eosinophils 0.4 10^3/ul (0-0.6); ABS Lymphocytes 0.4 10^3/ul (1.0-4.8); ABS Monocytes 0.4 10^3/ul (0-0.8); ABS Neutrophils 10.9 10^3/ul (1.5-7.7); ABS Nucleated RBC 0 10^3/ul; Eosinophil % 3.6 % (0-6); Hematocrit 23 % (42-52); Hemoglobin 7.9 g/dl (14.0-18.0); Mean Corpuscular HGB Conc 34 g/dl (31-36); Mean Corpuscular Hemoglobin 31 pg (27-31); Mean Corpuscular Volume 91 fL (80-94); Mean Platelet Volume 7.2 fL (7.4-10.4); Nucleated Red Blood Cells % 0; Platelet Count 112 10^3/ul (150-450); Red Blood Count 2.54 10^6/ul (4.00-5.40); Red Cell Distribution Width 15 % (10.5-15); White Blood Count 12.1 10^3/ul (3.5-10.8)
[2018-04-03 07:06] LABS: EGFR Non-African American 8.5 (>60)
[2018-04-03] MEDS: Sertraline* 50 MG TAB PO SCH (08:49)
[2018-04-03] MEDS: amLODIPine TAB* 5 MG PO SCH (08:49)
[2018-04-03] MEDS: Sodium Bicarbonate (ANTACID)* 650 MG TAB PO SCH ×3 (08:49→21:49)
[2018-04-03] MEDS: Cholecalciferol TAB* 1000 UNITS PO SCH (08:49)
[2018-04-03] MEDS: Omeprazole CAP* 20 MG PO SCH (08:50)
[2018-04-03] MEDS ORDERED: Magnesium Sulf 4 GM/100 ML IV* 4,000 MG/100 ML BAG IVPB ONE (10:00)
[2018-04-03] MEDS: Calcium Acetate CAP* 667 MG PO SCH ×2 (11:59→17:23)
[2018-04-03] MEDS: Azithromycin IV(*) 500 MG in NS 0.9% 250 ML* 250 ML IVPB SCH (14:27)
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
[2018-04-03] MEDS: cefTRIAXone(*) 1 GM in NS 0.9% 50 ML* 50 ML IVPB SCH (16:17)
[2018-04-03] MEDS: QUEtiapine TAB* 25 MG PO SCH (21:49)
[2018-04-04] MEDS: Sodium Bicarbonate (ANTACID)* 650 MG TAB PO SCH (08:39)
[2018-04-04] MEDS: Cholecalciferol TAB* 1000 UNITS PO SCH (08:39)
[2018-04-04] MEDS: amLODIPine TAB* 5 MG PO SCH (08:39)
[2018-04-04] MEDS: Omeprazole CAP* 20 MG PO SCH (08:39)
[2018-04-04] MEDS: Sertraline* 50 MG TAB PO SCH (08:39)
[2018-04-04] MEDS: Acyclovir* 400 MG TAB PO SCH (08:39)
[2018-04-04] MEDS: Calcium Acetate CAP* 667 MG PO SCH ×2 (08:39→11:50)
[2018-04-04 09:02] LABS: ABS Basophils 0.1 10^3/ul (0-0.2); ABS Eosinophils 0.3 10^3/ul (0-0.6); ABS Lymphocytes 0.5 10^3/ul (1.0-4.8); ABS Monocytes 0.4 10^3/ul (0-0.8); ABS Neutrophils 8.4 10^3/ul (1.5-7.7); ABS Nucleated RBC 0 10^3/ul; Eosinophil % 3.2 % (0-6); Hematocrit 25 % (42-52); Hemoglobin 8.6 g/dl (14.0-18.0); Lymphocyte % 4.8 % (25-47); Mean Corpuscular HGB Conc 34 g/dl (31-36); Mean Corpuscular Hemoglobin 31 pg (27-31); Mean Corpuscular Volume 91 fL (80-94); Mean Platelet Volume 6.7 fL (7.4-10.4); Nucleated Red Blood Cells % 0; Platelet Count 85 10^3/ul (150-450); Red Blood Count 2.79 10^6/ul (4.00-5.40); Red Cell Distribution Width 16 % (10.5-15); White Blood Count 9.7 10^3/ul (3.5-10.8)
[2018-04-04 09:14] LABS: EGFR Non-African American 8.8 (>60)
[2018-04-04 11:52] VITALS: BP 165/89
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
== END 2018-04-04 13:26 | disposition home or self-care (01) | DRG 871 ==
LOC: ED 07:05 → MEDTELE 13:27
PROVIDERS: ADMIT Internal Medicine Critical Care Medicine; ATTEND Student in an Organized Health Care Education/Training Program
PROC: 30233N1 Transfusion of Nonautologous Red Blood Cells into Peripheral Vein, Percutaneous Approach (ICD-10-PCS; principal; 2018-04-01)
DX: A40.3 Sepsis due to Streptococcus pneumoniae (principal); J13 Pneumonia due to Streptococcus pneumoniae; N17.9 Acute kidney failure, unspecified; E87.2 Acidosis; I13.11 Hypertensive heart and chronic kidney disease without heart failure, with stage 5 chronic kidney disease, or end stage renal disease; N18.5 Chronic kidney disease, stage 5; E87.5 Hyperkalemia; F12.90 Cannabis use, unspecified, uncomplicated; D63.1 Anemia in chronic kidney disease; R74.9 Abnormal serum enzyme level, unspecified; Z85.79 Personal history of other malignant neoplasms of lymphoid, hematopoietic and related tissues; Z80.1 Family history of malignant neoplasm of trachea, bronchus and lung; Z80.41 Family history of malignant neoplasm of ovary; Z80.0 Family history of malignant neoplasm of digestive organs; Z88.0 Allergy status to penicillin; Z79.899 Other long term (current) drug therapy
CPT/HCPCS: 36415; 71046; 80048; 80053; 81003; 81015; 82272; 82306; 82652; 83605; 83735; 83880; 84100; 84145; 84484; 85014; 85018; 85025; 85027; 85610; 85730; 86850; 86900; 86901; 86922; 87040; 87070; 87077; 87086; 87205; 87899; 93005; 93306; 99284; 99406; A9270-GY; G8978-GP-CH; G8979-GP-CH; G8980-GP-CH; J0456; J0610; J0692; J0696; J0744; J2270; J2405; J3475; J7060; P9040

== ENCOUNTER → 2018-04-10 07:54 | Emergency (ER) | payer MEDICARE, MEDICAID ==
[2018-04-10 07:59] VITALS: BP 159/79
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
[2018-04-10 08:26] LABS: ABS Basophils 0.1 10^3/ul (0-0.2); ABS Eosinophils 0.2 10^3/ul (0-0.6); ABS Lymphocytes 0.7 10^3/ul (1.0-4.8); ABS Monocytes 0.6 10^3/ul (0-0.8); ABS Neutrophils 8.7 10^3/ul (1.5-7.7); ABS Nucleated RBC 0 10^3/ul; Eosinophil % 2.2 % (0-6); Hematocrit 22 % (42-52); Hemoglobin 7.6 g/dl (14.0-18.0); Lymphocyte % 6.5 % (25-47); Mean Corpuscular HGB Conc 34 g/dl (31-36); Mean Corpuscular Hemoglobin 31 pg (27-31); Mean Corpuscular Volume 91 fL (80-94); Mean Platelet Volume 6.9 fL (7.4-10.4); Nucleated Red Blood Cells % 0; Platelet Count 153 10^3/ul (150-450); Red Blood Count 2.46 10^6/ul (4.00-5.40); Red Cell Distribution Width 15 % (10.5-15); White Blood Count 10.2 10^3/ul (3.5-10.8)
[2018-04-10 08:40] LABS: INR 1.03 (0.77-1.02)
[2018-04-10 08:47] LABS: EGFR Non-African American 6.9 (>60)
== END | disposition home or self-care (01) ==
LOC: ED 07:54
DX: D64.9 Anemia, unspecified (principal); C90.01 Multiple myeloma in remission; J18.9 Pneumonia, unspecified organism; N18.5 Chronic kidney disease, stage 5; Z88.0 Allergy status to penicillin; F17.290 Nicotine dependence, other tobacco product, uncomplicated
CPT/HCPCS: 36415; 80053; 85025; 85610; 85730; 86850; 86900; 86901; 99282

== ENCOUNTER 2018-06-02 09:33 | Day surgery (SDC) | payer MEDICARE, MEDICAID ==
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
[~2018-06-02 09:33] MED LIST: Buffered Lidocaine 0.9% SYRIN* 5 ML/SYR SYRINGE INTRADERM ONE; Cisatracurium* 2 MG/ML MDV 5 ML ONE; Famotidine IV* 10 MG/ML 2 ML (20 mg) IV ONE; Lactated Ringers 1000 ML Bag* 1,000 ML IV SCH; Succinylcholine* 20 MG/ML 10 ML VIAL ONE
[2018-06-02] MEDS ORDERED: Heparin DIALYSIS ONLY(*) 1,000 UNITS/ML VIAL ONE ×2 (11:03→11:10)
[2018-06-02] MEDS ORDERED: Bupivacaine 0.25% EPI 200,000* 30 ML SDV ONE ×2 (11:03→12:23)
[2018-06-02] MEDS ORDERED: Clindamycin 900 MG/D5W BAG(*) 900 MG/50 ML BAG IVPB ONE (11:05)
[2018-06-02] MEDS ORDERED: Famotidine IV* 10 MG/ML 2 ML (20 mg) ONE (11:05)
[2018-06-02] MEDS ORDERED: fentaNYL* 50 MCG/ML 2 ML VIAL (100 MCG VIAL) ONE (11:15)
[2018-06-02] MEDS ORDERED: Midazolam* 1 MG/ML 2 ML VIAL (2 MG) ONE (11:15)
[2018-06-02] MEDS ORDERED: Propofol* 10 MG/ML 20 ML BTL ONE (11:16)
[2018-06-02] MEDS ORDERED: Ondansetron INJ* 2 MG/ML VIAL ONE (11:16)
[2018-06-02] MEDS ORDERED: Dexamethasone IV* 4 MG/ML 1 ML (4 MG) ONE (11:16)
[2018-06-02] MEDS ORDERED: Lidocaine 2% PF * 5 ML VIAL ONE (11:17)
[2018-06-02 11:32] LABS: ABS Basophils 0 10^3/ul (0-0.2); ABS Eosinophils 0.1 10^3/ul (0-0.6); ABS Lymphocytes 0.7 10^3/ul (1.0-4.8); ABS Monocytes 0.5 10^3/ul (0-0.8); ABS Nucleated RBC 0 10^3/ul; Eosinophil % 1.8 %; Hematocrit 21 % (42-52); Lymphocyte % 9.9 %; Mean Corpuscular HGB Conc 33 g/dl (31-36); Mean Corpuscular Hemoglobin 31 pg (27-31); Mean Corpuscular Volume 93 fL (80-94); Nucleated Red Blood Cells % 0; Platelet Count 52 10^3/ul (150-450); Red Blood Count 2.28 10^6/ul (4.00-5.40); Red Cell Distribution Width 20 % (10.5-15); White Blood Count 7.3 10^3/ul (3.5-10.8)
[2018-06-02 11:46] LABS: BUN/Creatinine Ratio 10.6 (8-20); Calcium 8.8 mg/dL (8.6-10.3); EGFR African American 6.5 (>60); EGFR Non-African American 5.4 (>60); Potassium 4.7 mmol/L (3.5-5.0)
[2018-06-02] MEDS ORDERED: NS 0.9% 500 ML* 500 ML IV SCH (12:00)
[2018-06-02] MEDS ORDERED: Acetaminophen TAB* 325 MG PO PRN (12:23)
[2018-06-02] MEDS ORDERED: DiMENhydriNATE IV* 50 MG/ML VIAL IV PUSH PRN (12:23)
[2018-06-02] MEDS ORDERED: Naloxone* 0.4 MG/ML 1 ML VIAL IV PRN (12:23)
[2018-06-02] MEDS ORDERED: HYDROmorphone INJ1* 1 MG/ML SYRINGE IV PRN (12:23)
[2018-06-02] MEDS ORDERED: Glycopyrrolate IV* 0.2 MG/ML 1 ML VIAL ONE (12:40)
[2018-06-02] MEDS ORDERED: Neostigmine Methylsulfate* 1 MG/ML 10 ML VIAL (1 mg/ml) ONE (12:40)
[2018-06-02 15:43] VITALS: BP 147/85
--- NOTE | 2018-06-02 22:35 | OP ---
CC: Dr. Srikanth Daniel * DATE OF OPERATION: 06/02/18 - SDS DATE OF : 61 SURGEON: Randy Wang MD [employer] MAT INSPECTOR: PABLO Toscano ANESTHESIOLOGIST: Dr. Maldonado. ANESTHESIA: General anesthesia. PRE-OP DIAGNOSIS: End-stage renal disease. POST-OP DIAGNOSIS: End-stage renal disease. OPERATIVE PROCEDURE: Laparoscopic peritoneal dialysis catheter placement. SPECIMEN: None. BLOOD LOSS: Minimal. DESCRIPTION OF PROCEDURE: The patient was identified in the preoperative area. Case discussed with him and consent was signed. The patient was marked including where his belt line is so that we can get an idea where to best place the PD catheter. He then was taken to the operating room, placed on the operating table in the supine position. Preoperative antibiotics were given. Sequential devices were placed in bilateral lower extremities and general anesthesia was induced. Incision was made in the Mcfarlane's point at the left upper quadrant. This was deepened down in the anterior fascia, which was elevated, and a Veress needle inserted into the abdominal cavity, which was then allowed to insufflate to a pressure of 15 mmHg. The patient tolerated the insufflation well. An 8-mm Optiview trocar was then inserted. Laparoscope was inserted through this, there was no evidence of injury from the trocar insertion. Veress needle was then removed. Review of the abdomen showed some mild adhesions to the sigmoid colon in the pelvis but for the most part, there was no significant scarring. A 62 curl cath peritoneal dialysis catheter was then inserted into the abdomen. I then looked at some of the pericolonic fat on the sigmoid colon and made a decision to tack this up close to the left paracolic gutter. We had already placed a 5- mm trocar in the left lower quadrant. We then tracked a 5-mm trocar along the left rectus muscle. We utilized this trocar to put a 5-mm clip stenographic court reporter to tack some of the pericolonic fat up and out of the pelvis. Next, the catheter was placed in the appropriate position in the pelvis and brought out through this tunneled 5-mm trocar at the rectus muscle ensuring the placement of the cuffs right on to the peritoneum. Next, we tunneled the catheter in the appropriate fashion to the point we had chosen. This was also matching the site of the 5-mm trocar in the left lower quadrant, which had to be removed. We then hooked this up to the dialysate and this ran in and we were able to was open. We did have oozing throughout at the initial incision site at the dissection area where we had brought the omentum up, we did see clotting of this blood. Next, an omentopexy was performed taking the omentum, utilizing 0 Vicryl stitch to tack this to the left upper quadrant through a separate stab incision. Next, the abdomen was allowed to collapse. Trocars were removed under direct vision and all incisions were reapproximated in the appropriate fashion. We then let the dialysate flow in and brought the patient to the PACU for planned removal of the dialysate. The patient tolerated the procedure well. [id number]/[facility] #: [id number] TONE
[2018-06-03 11:27] LABS: Hepatitis B Surface Antigen Nonreactive (Nonreactive)
[2018-06-04 20:14] LABS: TB Mitogen minus Nil Result 1.01 IU/mL; TB Nil Result 0.01 IU/mL; TB1 Ag minus Nil Result 0 IU/mL; TB2 Ag minus Nil Result 0 IU/mL
== END 2018-06-02 15:49 | disposition home or self-care (01) ==
LOC: OR 09:33
PROVIDERS: ATTEND Surgery
DX: N18.6 End stage renal disease (principal); E85.9 Amyloidosis, unspecified; C90.00 Multiple myeloma not having achieved remission; I10 Essential (primary) hypertension; E78.5 Hyperlipidemia, unspecified
CPT/HCPCS: 36415; 80048; 85025; 86480; 87340; J0330; J1100; J1644; J2250; J2405; J2704; J2710; J3010

== ENCOUNTER 2018-06-02 23:14 | Emergency (ER) | payer MEDICARE, MEDICAID ==
--- OUTSIDE RECORDS SUMMARY | 2018-06-02 23:37 | XMS REPORT | Continuity of Care Document ---
:1965 External Reference #:[id number] Author Name Anusha Fowler Care Team Providers Name Role Phone Constantino Dawn MD Primary Care Physician Unavailable Payers Type Date Identification Numbers Payment Provider Subscriber Policy Number: [id number] Medicare Lucie Mackey PayID: [id number] [address] [place] [address] Policy Number: [id number] Medicaid Lucie Mackey Group Name: 1 1 [address] PayID: [id number] [place] [address] Advance Directives Description No Information Available Problems Description No Information Family History Date Family Member(s) Problem(s) Comments Father Prostate Cancer Mother Lung Cancer Social History Type Date Description Comments Sex Unknown Marital Status Lives With Alone ETOH Use Denies alcohol use Tobacco Use Start: Unknown cigars 4-5 per dayDocument: 12/10/17 - .Nurse GS Document: 12/10/17 - .Nurse GS Recreational Drug Use Denies Drug Use Tobacco Use Start: Unknown Light tobacco smoker (10 or fewer cigarettes/day) Smoking Status Reviewed: 05/12/18 Light tobacco smoker (10 or fewer cigarettes/day) Exercise Type/Frequency Does not exercise Allergies, Adverse Reactions, Alerts Date Description Reaction Status Severity Comments 12/08/2017 Penicillin Active rash Medications Medication Date Status Form Strength Qnty SIG Indications Ordering Provider Hydrocodone-Ac 05/12/ Active Tablets 5-325mg 8tabs 1 tab by Linda etaminophen 2018 mouth B. 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 Amlodipine / Active Tablets 10mg 1 by mouth Unknown Besylate 0000 every day Omeprazole 00/ Active Capsules 20mg 1 by mouth Unknown 0000 DR every day Quetiapine / Active Tablets 25mg 1 tabs by Unknown Fumarate 0000 mouth every night at bedtime Sertraline HCL / Active Tablets 50mg 1 by mouth Unknown 0000 every day Rosuvastatin / Active Tablets 20mg 1 by mouth Unknown Calcium 0000 every day Cytra-2 / Hx Solution 500-334mg/ 30cc three Unknown 0000 5ML times a day Simvastatin / Hx Tablets 40mg take 1 Unknown 0000 tablet by mouth at bedtime Toprol XL / Hx Tablets ER 50mg 1 by mouth Unknown 0000 24HR every day Triamterene/Hy / Hx Tablets 37.5-25mg 1 by mouth Unknown drochlorothiaz 0000 every day steve Warfarin / Hx Tablets 5mg as Unknown Sodium 0000 directed Immunizations Description No Information Available Vital Signs Date Vital Result Comment 05/12/2018 2:06pm Height 71 inches 5'11" Weight 200.00 lb Heart Rate 72 /min BP Systolic 140 mmHg BP Diastolic 84 mmHg Respiratory Rate 16 /min Body Temperature 97.4 F BMI (Body Mass Index) 27.9 kg/m2 05/10/2018 8:58am Height 71 inches 5'11" Weight 200.00 lb Heart Rate 72 /min BP Systolic Sitting 152 mmHg BP Diastolic Sitting 80 mmHg Respiratory Rate 18 /min Body Temperature 98.2 F BMI (Body Mass Index) 27.9 kg/m2 12/10/2017 10:43am Height 71 inches 5'11" Weight 185.00 lb Heart Rate 68 /min BP Systolic 140 mmHg BP Diastolic 84 mmHg Respiratory Rate 16 /min Body Temperature 96.9 F BMI (Body Mass Index) 25.8 kg/m2 Results Test Date Facility Test Result H/L Range Note Laboratory test 10/12/2017 [facility] Surgical SEE RESULT [address] [place] [address] [phone] Laboratory test 10/12/2017 [facility] Surgical SEE RESULT [address] [place] [address] [phone] Inr/Protime 10/12/2017 [facility] Inr 1.06 High 0.77-1.[address] [place] [address] [phone] Laboratory test 10/12/2017 [facility] Partial 35.4 seconds N 26.0-36.[address] [address] PTT [phone] 1 SEE RESULT BELOW Name: LUCIE MACKEY : [address]: Luis Whelan MD Acct: [id number] Unit: [id number] AGE: 52 Location: Re10/12/17 SEX: M Status: REG REF SPEC: [id number] MARY: 10/12/17 [facility] [address]: Seamus Loo MD REQ: [id number] RECD: 10/12/17 STATUS: LISSET DRAPER DR: Luis Whelan MD _ ORDERED: PTH HANDLING CH, LEVEL 1, INTRAOP CON-GR FINAL DIAGNOSIS Kidney, left, biopsy: Pending diagnosis from [facility] Renal Pathology. CLINICAL HISTORY Multiple myeloma, amyloidosis, kidney failure. PRE-OPERATIVE DIAGNOSIS Kidney failure GROSS DESCRIPTION The specimen is received fresh labeled, Left Kidney, and consists of three flores-pink soft tissue cores ranging from 0.7 x 0.1 cm to 1.2 x 0.1 cm. The specimen is entirely submitted to [facility] for renal analysis. Signed by and Reported on: Hamida Sheikh MD 10/13/17 0845 END OF REPORT DEPARTMENT OF PATHOLOGY, [address] [place] [address] Efra Jones M.D. 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 Silvana Fraser at [facility], [place], [place], outside accession number [id number], our surgical [id number], received on 10/14/17 and reported on 10/15/17. Original consultation report scanned into Pathology Consults. Diagnosis: Renal biopsy: 1. Amyloidosis, AL lambda type, involving glomeruli and arterial vessels. SEE COMMENT. 2. Tubular atrophy and interstitial fibrosis, mild to moderate. 3. Arteriosclerosis, mild. Comment: Immunofluorescence microscopy shows staining of amyloid deposits for lambda light chain only. No acute/active inflammatory injury is seen. There is no evidence of light chain cast nephropathy. Electron microscopy is pending and will be reported separately in an addendum. Addendum Signed (signature on file) Hamida Sheikh MD 1216 FINAL DIAGNOSIS Kidney, left, biopsy: Pending diagnosis from [facility] Renal Pathology. CLINICAL HISTORY Multiple myeloma, amyloidosis, kidney failure. PRE-OPERATIVE DIAGNOSIS Kidney failure CONTINUED ON NEXT PAGE DEPARTMENT OF PATHOLOGY, [address] [place] [address] Efra Jones M.D. Director [facility] # [id number] RUN DATE: 10/23/17 [facility] LAB LIVE PAGE 2 Patient: LUCIE MACKEY [id number] (Continued) GROSS DESCRIPTION (Continued) GROSS DESCRIPTION The specimen is received fresh labeled, Left Kidney, and consists of three flores-pink soft tissue cores ranging from 0.7 x 0.1 cm to 1.2 x 0.1 cm. The specimen is entirely submitted to [facility] for renal analysis. Signed by and Reported on: Hamida Sheikh MD 10/13/17 0845 END OF REPORT DEPARTMENT OF PATHOLOGY, [address] [place] [address] Efra Jones M.D. Director [facility] # [id number] Procedures Date Code Description Status 04/02/2018 60205 ECHO Transthorasic Realtime 2D W Doppler & Color Flow Hosp Completed 02/26/2018 77538 ECHO Transthoracic, Real-Time 2D With Doppler And Color Completed Flow 02/26/2018 08529 ECHO Transthoracic, Real-Time 2D With Doppler And Color Completed Flow 10/13/2017 62200 ECHO Transthorasic Realtime 2D W Doppler & Color Flow Hosp Completed 03/24/2016 97427 EEG Recording In Coma Or Sleep Only Completed 03/24/2016 30682 EKG, Interpretation Only Completed 03/23/2016 85822 EKG, Interpretation Only Completed 03/20/2016 95382 Color Flow Doppler/Interp & Reprt Completed 03/20/2016 40326 Pulse Wave/Continuous-Interp.RPT Completed 03/20/2016 47971 Echocardiography, Transesophageal, Real Time W/Image 2D Completed W/W/O M-M 03/19/2016 10101 EEG Recording In Coma Or Sleep Only Completed 01/30/2016 84490 ECHO Transthorasic Realtime 2D W Doppler & Color Flow Hosp Completed 07/30/2015 42349 ECHO Transthorasic Realtime 2D W Doppler & Color Flow Hosp Completed 05/11/2015 59676 ECHO Transthorasic Realtime 2D W Doppler & Color Flow Hosp Completed 09/19/2014 30550 ECHO Transthoracic, Real-Time 2D With Doppler And Color Completed Flow Encounters Type Date Location Provider Dx Diagnosis Office Visit 04/04/2018 [facility] Soto Cisneros J15.4 Pneumonia due to 9:15a jose Staton MD other streptococci Hospitalists N17.9 Acute kidney failure, unspecified 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 N18.5 Chronic kidney disease, stage 5 E87.2 Acidosis Office Visit 04/03/2018 [facility] Soto Cisneros J15.4 Pneumonia due to 9:14a jose Staton MD other streptococci Hospitalists 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 N18.5 Chronic kidney disease, stage 5 E87.2 Acidosis Office Visit 04/02/2018 [facility] Soto Cisneros N17.9 Acute kidney 9:14a jose Staton MD failure, Hospitalists unspecified J15.4 Pneumonia due to other streptococci 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 N18.6 End stage renal [facility] MD Felipe, disease FACS Office Visit 09/22/2017 8:20a [facility] Luis Whelan, E85.9 Amyloidosis, [facility] AT M.D. unspecified Gil D64.9 Anemia, unspecified M25.562 Pain in left knee M25.462 Effusion, left knee S60.221D Contusion of right hand, subsequent encounter Office Visit 05/03/2017 2:54p [facility] Riki Ortega, E85.9 Amyloidosis , Assoc,jose JOAQUIN unspecified Hospitalists N17.9 Acute kidney failure, unspecified N18.4 Chronic kidney disease, stage 4 (severe) Z94.81 [facility]:26p Assoc,jose Concepcion MD meningitis Hospitalists N17.9 Acute kidney failure, unspecified R78.81 Bacteremia R40.2434 [place] coma scale score 3-8, 24+hrs Office [facility] Pneumococcal For Infectious Gilmar Mcghee meningitis Diseases G93.40 Encephalopathy, unspecified Z94.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 [facility]neum[facility] 12:26p Assocjose MD meningitis Hospitalists R78.81 Bacteremia N17.9 Acute kidney failure, unspecified R40.2434 Migel coma scale score 3-8, 24+hrs [facility] Pneumococcal 12:25p Assocjose MD meningitis Hospitalists R78.81 Bacteremia N17.9 Acute kidney failure, unspecified R40.2434 Migel coma scale score 3-8, 24+hrs Office Visit 04/01/2016 [facility] Radha Rosales G00.1 Pneumococcal 12:25p Assocjose NP meningitis Hospitalists N17.9 Acute kidney failure, unspecified R78.81 Bacteremia Office Visit 04/01[facility]2016 [facility] Pneumococcal For Infectious Gilmar Mcghee meningitis Diseases G93.40 Encephalopathy, unspecified 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 meningitis Hospitalists R78.81 Bacteremia N17.9 Acute kidney failure, unspecified Office Visit 03/30/2016 11:30a [facility] G00.1 Pneumococcal Assoc,jose Mayfield M.D. meningitis Hospitalists R78.81 Bacteremia N17.9 Acute kidney failure, unspecified Office Visit 03/29/2016 11:28a [facility] Jovany, G00.1 Pneumococcal Assoc,jose Schafer meningitis Hospitalists R78.81 Bacteremia B17.9 Acute viral hepatitis, unspecified R40.2434 Migel coma scale score 3-8, 24+hrs Office Visit 03/28/2016 11:28a [facility] Jovany, G00.1 Pneumococcal Assoc,jose Schafer meningitis Hospitalists R78.81 Bacteremia N17.9 Acute kidney failure, unspecified Office Visit 03/27/2016 11:27a [facility] Jovany, G00.1 Pneumococcal Assoc,jose Schafer meningitis Hospitalists R78.81 Bacteremia N17.9 Acute kidney failure, unspecified Office Visit 03/26/2016 11:26a [facility] Efe Manzo, G00.1 Pneumococcal Assoc,jose Schafer meningitis Hospitalists R78.81 Bacteremia N17.9 Acute kidney failure, unspecified R40.2434 [place] coma scale score 3-8, 24+hrs Office Visit 03/25/2016 10:49a [facility] Lucie Gomez G00.1 Pneumococcal For Infectious Gilmar Mcghee meningitis Diseases G93.40 Encephalopathy, unspecified R50.9 Fever, unspecified Z94.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 Office Visit 03/25/2016 11:25a [facility] Jovany, G00.1 Pneumococcal Assoc,jose Schafer meningitis Hospitalists R78.81 Bacteremia N17.9 Acute kidney failure, unspecified R40.2434 Migel coma scale score 3-8, 24+hrs Office Visit 03/24/2016 11:24a [facility] Manzo, N17.9 Acute kidney Assoc,jose Schafer failure, Hospitalists unspecified G00.1 Pneumococcal meningitis R78.81 Bacteremia R40.2434 Migel coma scale score 3-8, 24+hrs Office Visit 03/24/2016 10:30a [facility] Lucie Gomez G00.1 Pneumococcal For Infectious Gilmar Mcghee meningitis Diseases G93.40 Encephalopathy, unspecified R50.9 Fever, unspecified Z94.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 Office Visit 03/23/2016 11:24a [facility] Jovany, J96.01 Acute respiratory Assoc,jose Schafer failure with Hospitalists hypoxia G00.1 Pneumococcal meningitis R78.81 Bacteremia G40.901 Epilepsy, unsp, not intractable, with status epilepticus Office Visit 03/22/2016 11:23a [facility] Jovany, J96.01 Acute respiratory Assoc,jose Schafer failure with Hospitalists hypoxia R78.81 Bacteremia G00.9 Bacterial meningitis, unspecified G40.901 Epilepsy, unsp, not intractable, with status epilepticus Office Visit 03/21/2016 10:19a [facility] Lucie Gomez G00.1 Pneumococcal For Infectious Gilmar Mcghee meningitis Diseases G93.40 Encephalopathy, unspecified 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 failure with Hospitalists hypoxia N17.9 Acute kidney failure, unspecified R40.2432 Migel coma scale score 3-8, EMR G40.901 Epilepsy, unsp, not intractable, with status epilepticus Office Visit 03/20/2016 [facility] Uri Pina G40.901 Epilepsy, unsp, 11:21a Assoc,pc Mojgan, D.O. 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 A41.9 Sepsis, unspecified organism R65.20 Severe sepsis without septic shock Office Visit 03/19/2016 11:20a [facility] Silvana C90.00 Multiple Assoc,pc Carla Ulrich 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
--- OUTSIDE RECORDS SUMMARY | 2018-06-02 23:37 | XMS REPORT | Continuity of Care Document ---
:1965 External Reference #:[id number] Author Name Ruby Omalley Care Team Providers Name Role Phone Constantino Dawn MD Primary Care Physician Unavailable Payers Type Date Identification Numbers Payment Provider Subscriber Policy Number: [id number] Medicare Lucie Mackey PayID: [id number] [address] [place] [address] Policy Number: [id number] Medicaid Lucie Mackey Group Name: 1 1 [address] PayID: [id number] [place] [address] Advance Directives Description No Information Available Problems [...] mouth B. every 6 [place], hours as [employer] needed for pain Vitamin D 12/10/ Active Capsules 2000Unit 30caps take one Randy Love (Cholecalcifer 2018 tablet MD Felipe, ol) daily FACS Sodium / Active Tablets 650mg 2 tabs Unknown Bicarbonate 0000 three times a day Acyclovir // Active Tablets 400mg take 1 Unknown 0000 tablet by mouth twice a day Labetalol HCL / Active Tablets 300mg 1 by mouth Unknown 0000 every 8 hrs. Amlodipine 00/ Active Tablets 10mg 1 by mouth Unknown [...] Result H/L Range Note Laboratory test 10/12/2017 [facility] Surgical SEE RESULT [address] [place] [address] [phone] Laboratory test 10/12/2017 [facility] Surgical SEE RESULT [address] [place] [address] [phone] Inr/Protime 10/12/2017 [facility] Inr 1.06 High 0.77-1.[address] [place] [address] [phone] Laboratory test 10/12/2017 [facility] Partial 35.4 seconds N 26.0-36.[address] [place] [address] PTT [phone] 1 SEE RESULT BELOW Name: LUCIE MACKEY : [address]: Luis Whelan MD Acct: [id number] Unit: [id number] AGE: 52 Location: Re10/12/17 SEX: M Status: REG REF SPEC: [id number] MARY: 10/12/[address] [facility] [address]: Seamus Loo MD REQ: [id number] RECD: 10/12/17 STATUS: LISSET DRAPER DR: Luis Whelan MD _ ORDERED: PTH HANDLING CH, LEVEL 1, INTRAOP CON-GR FINAL DIAGNOSIS Kidney, left, biopsy: Pending diagnosis from [facility] Renal Pathology. CLINICAL HISTORY Multiple myeloma, amyloidosis, kidney failure. PRE-OPERATIVE DIAGNOSIS Kidney failure GROSS DESCRIPTION The specimen is received fresh labeled, Left Kidney, and consists of three flores-pink soft tissue cores ranging from 0.7 x 0.1 cm to 1.2 x 0.1 cm. The specimen is entirely submitted to [facility] for renal analysis. Signed by and Reported on: Hamida Sheikh MD 10/13/17 0845 END OF REPORT DEPARTMENT OF PATHOLOGY, [address] [place] [address] Efra Jones M.D. Director [facility] # [id number] 2 SEE RESULT BELOW Name: LUCIE MACKEY : [address]: Luis Whelan MD Acct: [id number] Unit: [id number] AGE: 52 Location: SP Re10/12/17 SEX: M Status: REG REF SPEC: [id number] MARY: 10/12/17-[address]: Luis Whelan MD REQ: [id number] RECD: 10/12/17-1109 STATUS: LISSET DRAPER DR: Seamus Loo MD _ ORDERED: PTH HANDLING CH, LEVEL 1, INTRAOP CON-GR Consultation with Dr. Silvana Fraser at [facility], [place], [place], outside accession number [id number], our surgical [id number], received on 10/14/17 and reported on 10/15/17. [...] DIAGNOSIS Kidney, left, biopsy: Pending diagnosis from [facility] Renal Pathology. CLINICAL HISTORY Multiple myeloma, amyloidosis, kidney failure. PRE-OPERATIVE DIAGNOSIS Kidney failure CONTINUED ON NEXT PAGE DEPARTMENT OF PATHOLOGY, [address] [place] [address] Efra Jonse M.D. Director [facility] # [id number] RUN DATE: 10/23/17 [facility] LAB LIVE PAGE 2 Patient: LUCIE MACKEY [id number] (Continued) GROSS DESCRIPTION (Continued) GROSS DESCRIPTION The specimen is received fresh labeled, Left Kidney, and consists of three flores-pink soft tissue cores ranging from 0.7 x 0.1 cm to 1.2 x 0.1 cm. The specimen is entirely submitted to [facility] for renal analysis. Signed by and Reported on: Hamida Sheikh MD 10/13/17 0845 END OF REPORT DEPARTMENT OF PATHOLOGY, [address] [place] [address] Efra Jones M.D. Director [facility] # [id number] Procedures Date Code Description Status 04/02/2018 04089 ECHO Transthorasic Realtime 2D W Doppler & Color Flow Hosp Completed 02/26/2018 70322 ECHO Transthoracic, Real-Time 2D With Doppler And Color Completed Flow 02/26/2018 74334 ECHO Transthoracic, Real-Time 2D With Doppler And Color Completed Flow 10/13/2017 41952 ECHO Transthorasic Realtime 2D W Doppler & Color Flow Hosp Completed 03/24/2016 46197 EEG Recording In Coma Or Sleep Only Completed 03/24/2016 27954 EKG, Interpretation Only Completed 03/23/2016 26457 EKG, Interpretation Only Completed 03/20/2016 35465 Color Flow Doppler/Interp & Reprt Completed 03/20/2016 80958 Pulse Wave/Continuous-Interp.RPT Completed 03/20/2016 12934 Echocardiography, Transesophageal, Real Time W/Image 2D Completed W/W/O M-M 03/19/2016 39320 EEG Recording In Coma Or Sleep Only Completed 01/30/2016 14061 ECHO Transthorasic Realtime 2D W Doppler & Color Flow Hosp Completed 07/30/2015 15295 ECHO Transthorasic Realtime 2D W Doppler & Color Flow Hosp Completed 05/11/2015 01813 ECHO Transthorasic Realtime 2D W Doppler & Color Flow Hosp Completed 09/19/2014 42787 ECHO Transthoracic, Real-Time 2D With Doppler And Color Completed Flow Encounters Type Date Location Provider Dx Diagnosis Office [facility] Randy Wang, N18.6 End stage renal 8:45a Of Anjelica JOAQUIN, FACS disease [facility]4 Pneumonia due to 9:15a jose Staton MD other streptococci Hospitalists N17.9 Acute kidney failure, unspecified 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 unspecified Davis D64.9 Anemia, unspecified M25.562 Pain in left knee M25.462 Effusion, left knee S60.221D Contusion of right hand, subsequent encounter Office Visit 05/03/2017 2:54p 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 Office Visit 04/04/2016 [facility] G00.1 Pneumococcal 12:26p Assoc,jose Concepcion MD meningitis Hospitalists N17.9 Acute kidney failure, unspecified R78.81 Bacteremia R40.2434 Migel coma scale score 3-8, 24+hrs [facility] Pneum[facility] For Infectious Gilmar Mcghee meningitis Diseases G93.40 Encephalopathy, unspecified Z94.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 Office Visit 04/03/2016 [facility] G00.1 Pneumococcal 12:26p Assoc,jose Concepcion MD meningitis Hospitalists R78.81 Bacteremia N17.9 Acute kidney failure, unspecified R40.2434 [place] coma scale score 3-8, 24+hrs Office Visit 04/02/2016 [facility] G00.1 Pneumococcal 12:25p Assoc,jose Concepcion MD meningitis Hospitalists R78.81 Bacteremia N17.9 Acute kidney failure, unspecified R40.2434 Migel coma scale score 3-8, 24+hrs Office Visit 04/01/2016 [facility] Radha Rosales G00.1 Pneumococcal 12:25p Assoc,jose Gonzalez NP meningitis Hospitalists N17.9 Acute kidney failure, unspecified R78.81 Bacteremia Office Visit 04/01[facility] Pneumococcal For Infectious Macqueen, M.D. meningitis Diseases G93.40 Encephalopathy, unspecified Z94.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 Office Visit 03/31/2016 10:57a [facility] Lucie Gomez G00.1 Pneumococcal For Infectious Connor Mcghee. meningitis Diseases G93.40 Encephalopathy, unspecified Z94.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 Office Visit 03/31/2016 11:31a [facility] G00.1 Pneumococcal Assoc,jose Mayfield M.D. meningitis Hospitalists R78.81 Bacteremia N17.9 Acute kidney failure, unspecified Office Visit 03/30/2016 11:30a [facility] G00.1 Pneumococcal Assoc,jose Mayfield M.D. meningitis Hospitalists R78.81 Bacteremia N17.9 Acute kidney failure, unspecified Office Visit 03/29/2016 11:28a [facility] Jovany, G00.1 Pneumococcal Assoc,pc Gilmar meningitis Hospitalists R78.81 Bacteremia B17.9 Acute viral hepatitis, unspecified R40.2434 [place] coma scale score 3-8, 24+hrs Office Visit 03/28/2016 11:28a [facility] Jovany, G00.1 Pneumococcal Assoc,pc [place] meningitis Hospitalists R78.81 Bacteremia N17.9 Acute kidney failure, unspecified Office Visit 03/27/2016 11:27a [facility] Jovany, G00.1 Pneumococcal Assoc,pc [place] meningitis Hospitalists R78.81 Bacteremia N17.9 Acute kidney failure, unspecified Office Visit 03/26/2016 11:26a [facility] Jovany, G00.1 Pneumococcal Assoc,pc M.D. meningitis Hospitalists R78.81 Bacteremia N17.9 Acute kidney failure, unspecified R40.2434 [place] coma scale score 3-8, 24+hrs Office Visit 03/25/2016 10:49a [facility] Lucie Gomez G00.1 Pneumococcal For Infectious Connor Mcghee. meningitis Diseases G93.40 Encephalopathy, unspecified R50.9 Fever, unspecified Z94.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 Office Visit 03/25/2016 11:25a [facility] Efe Manzo, G00.1 Pneumococcal Assoc,pc MLarryDLarry meningitis Hospitalists R78.81 Bacteremia N17.9 Acute kidney failure, unspecified R40.2434 [place] coma scale score 3-8, 24+hrs Office Visit 03/24/2016 11:24a [facility] Efe Manzo, N17.9 Acute kidney Assoc,jose Merritt.Jason failure, Hospitalists unspecified G00.1 Pneumococcal meningitis R78.81 Bacteremia R40.2434 [place] coma scale score 3-8, 24+hrs Office Visit 03/24/2016 10:30a [facility] Lucie Gomez G00.1 Pneumococcal For Infectious Gilmar Mcghee meningitis Diseases G93.40 Encephalopathy, unspecified R50.9 Fever, unspecified Z94.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 Office Visit 03/23/2016 11:24a [facility] Efe Manzo, J96.01 Acute respiratory Assoc,jose Schafer failure with Hospitalists hypoxia G00.1 Pneumococcal meningitis R78.81 Bacteremia G40.901 Epilepsy, unsp, not intractable, with status epilepticus Office Visit 03/22/2016 11:23a [facility] Efe Manzo, J96.01 Acute respiratory Assoc,jose Merritt.Jason failure with Hospitalists hypoxia R78.81 Bacteremia G00.9 Bacterial meningitis, unspecified G40.901 Epilepsy, unsp, not intractable, with status epilepticus Office Visit 03/21/2016 10:19a [facility] Lucie Gomez G00.1 Pneumococcal For Infectious Gilmar Mcghee meningitis Diseases G93.40 Encephalopathy, unspecified Z94.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 Office Visit 03/21/2016 [facility] Michelle Pina J96.01 Acute respiratory 11:22a Assoc,pc Mojgan, D.O. failure with Hospitalists hypoxia N17.9 Acute kidney failure, unspecified R40.2432 [place] coma scale score 3-8, EMR G40.901 Epilepsy, unsp, not intractable, with status epilepticus Office Visit 03/20/2016 [facility] Michelle Pina G40.901 Epilepsy, unsp, 11:21a Assoc,pc Mojgan, D.O. 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 Uri Pina C90.00 Multiple Assoc,jose Ulrich D.O. 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
--- OUTSIDE RECORDS SUMMARY | 2018-06-02 23:38 | XMS REPORT | Continuity of Care Document ---
:1965 External Reference #:[id number] Author Name FreddieRubinHamida nichols Care Team Providers Name Role Phone Constantino Dawn MD Primary Care Physician Unavailable Payers Type Date Identification Numbers Payment Provider Subscriber Policy Number: [id number] Medicare Lucie Mackey PayID: [id number] [address] [place] [address] Policy Number: [id number] Medicaid Lucie Mackey Group Name: 1 1 [address] PayID: [id number] [place] [address] Advance Directives Description No Information Available Problems [...] (10 or fewer cigarettes/day) Smoking Status Reviewed: 05/10/18 Light tobacco smoker (10 or fewer cigarettes/day) Exercise Type/Frequency Does not exercise Allergies, Adverse Reactions, Alerts Date Description Reaction Status Severity Comments 12/08/2017 Penicillin Active rash Medications Medication Date Status Form Strength Qnty SIG Indications Ordering Provider Vitamin D 12/10/ Active Capsules 2000Unit 30caps take one Randy P. (Cholecalcifer 2018 tablet MD Felipe, ol) daily FACS Sodium 00// Active Tablets 650mg 2 tabs Unknown Bicarbonate 0000 three times a day Acyclovir / Active Tablets 400mg take 1 Unknown 0000 tablet by mouth twice a day Labetalol HCL / Active Tablets 300mg 1 by mouth Unknown 0000 every 8 hrs. Amlodipine 00// Active Tablets 10mg 1 by mouth Unknown Besylate 0000 every day Omeprazole / Active Capsules 20mg 1 by mouth Unknown [...] Available Vital Signs Date Vital Result Comment 05/10/2018 8:58am Height 71 inches 5'11" Weight [...] Result H/L Range Note Laboratory test 10/12/2017 [facility] SEE RESULT [address] [place] [address] [phone] Laboratory test 10/12/2017 [facility] SEE RESULT [address] [address] [phone] Inr/Protime 10/12/2017 [facility] Inr 1.06 High 0.77-1.[address] [place] [address] [phone] Laboratory test 10/12/2017 [facility] Partial 35.4 seconds N 26.0-36.[address] [place] [address] PTT [phone] 1 SEE RESULT BELOW Name: LUCIE MACKEY : [address]: Luis Whelan MD Acct: [id number] Unit: [id number] AGE: 52 Location: Re10/12/17 SEX: M Status: REG REF SPEC: [id number] MARY: 10/12/[address]: Seamus Loo MD REQ: [id number] RECD: 10/12/17 STATUS: LISSET DRAPER DR: Luis Whelan MD _ ORDERED: PTH HANDLING CH, LEVEL 1, INTRAOP CON-GR FINAL DIAGNOSIS Kidney, left, biopsy: Pending diagnosis from [facility] Renal Pathology. CLINICAL HISTORY Multiple myeloma, amyloidosis, kidney failure. PRE-OPERATIVE DIAGNOSIS Kidney failure GROSS DESCRIPTION The specimen is received fresh labeled, Left Kidney, and consists of three flores-pink soft tissue cores ranging from 0.7 x 0.1 cm to 1.2 x 0.1 cm. The specimen is entirely submitted to [facility] for renal analysis. Signed by and Reported on: Hamida Sheikh MD 10/13/17 0845 END OF REPORT DEPARTMENT OF PATHOLOGY, [address] [place] [address] Efra Jones M.D. Director [facility] # [id number] 2 SEE RESULT BELOW Name: LUCIE MACKEY : [address]: Luis Whelan MD Acct: [id number] Unit: [id number] AGE: 52 Location: SP Re10/12/17 SEX: M Status: REG REF SPEC: [id number] MARY: 10/12/[address]: Luis Whelan MD REQ: [id number] RECD: 10/12/17 STATUS: LISSET DRAPER DR: Seamus Loo MD _ ORDERED: PTH HANDLING , LEVEL 1, INTRAOP CON-GR Consultation with Dr. Silvana Fraser at [facility], [place], [place], outside accession number [id number], our surgical [id number], received on 10/14/17 and reported on 10/15/17. [...] DIAGNOSIS Kidney, left, biopsy: Pending diagnosis from [facility] Renal Pathology. CLINICAL HISTORY Multiple myeloma, amyloidosis, kidney failure. PRE-OPERATIVE DIAGNOSIS Kidney failure CONTINUED ON NEXT PAGE DEPARTMENT OF PATHOLOGY, [address] [place] [address] Efra Jones M.D. Director [facility] # [id number] RUN DATE: 10/23/17 [facility] LIVE PAGE 2 Patient: LUCIE MACKEY [id number] (Continued) GROSS DESCRIPTION (Continued) GROSS DESCRIPTION The specimen is received fresh labeled, Left Kidney, and consists of three flores-pink soft tissue cores ranging from 0.7 x 0.1 cm to 1.2 x 0.1 cm. The specimen is entirely submitted to [facility] for renal analysis. Signed by and Reported on: Hamida Sheikh MD 10/13/17 0845 END OF REPORT DEPARTMENT OF PATHOLOGY, [address] [place] [address] Efra Jones M.D. Director [facility] # [id number] Procedures Date Code Description Status 04/02/2018 08710 ECHO Transthorasic Realtime 2D W Doppler & Color Flow Hosp Completed 02/26/2018 85933 ECHO Transthoracic, Real-Time 2D With Doppler And Color Completed Flow 02/26/2018 53695 ECHO Transthoracic, Real-Time 2D With Doppler And Color Completed Flow 10/13/2017 96391 ECHO Transthorasic Realtime 2D W Doppler & Color Flow Hosp Completed 03/24/2016 49409 EEG Recording In Coma Or Sleep Only Completed 03/24/2016 10235 EKG, Interpretation Only Completed 03/23/2016 66212 EKG, Interpretation Only Completed 03/20/2016 62657 Color Flow Doppler/Interp & Reprt Completed 03/20/2016 99048 Pulse Wave/Continuous-Interp.RPT Completed 03/20/2016 11555 Echocardiography, Transesophageal, Real Time W/Image 2D Completed W/W/O M-M 03/19/2016 75271 EEG Recording In Coma Or Sleep Only Completed 01/30/2016 62221 ECHO Transthorasic Realtime 2D W Doppler & Color Flow Hosp Completed 07/30/2015 90700 ECHO Transthorasic Realtime 2D W Doppler & Color Flow Hosp Completed 05/11/2015 66151 ECHO Transthorasic Realtime 2D W Doppler & Color Flow Hosp Completed 09/19/2014 90712 ECHO Transthoracic, Real-Time 2D With Doppler And Color Completed Flow Encounters Type Date Location Provider Dx Diagnosis Office Visit 04/04/2018 [facility] J15.4 Pneumonia due to 9:15a jose Staton MD other streptococci Hospitalists N17.9 Acute kidney failure, unspecified 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 N18.5 Chronic kidney disease, stage 5 E87.2 Acidosis [facility].4 Pneumonia due to 9:14a jose Staton MD other streptococci Hospitalists 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 [place] Lucie Gomez G00.1 Pneumococcal For Infectious Connor Mcghee. meningitis Diseases G93.40 Encephalopathy, unspecified Z94.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 [facility] 12:26p Assoc,jose Concepcion MD meningitis Hospitalists R78.81 Bacteremia N17.9 Acute kidney failure, unspecified R40.2434 [place] coma scale score 3-8, 24+hrs Office Visit 04/02/2016 [facility] G00.1 Pneumococcal 12:25p Assoc,jose Concepcion MD meningitis Hospitalists R78.81 Bacteremia N17.9 Acute kidney failure, unspecified R40.2434 [place] coma scale score 3-8, 24+hrs Office Visit 04/01/2016 [facility] Radhacalin Rosales G00.1 Pneumococcal 12:25p Assoc,jose Gonzalez NP meningitis Hospitalists N17.9 Acute kidney failure, unspecified R78.81 Bacteremia Office Visit 04/01/2016 11:05a [facility] [place] Lucie Gomez G00.1 Pneumococcal For Infectious Connor Mcghee. meningitis Diseases G93.40 Encephalopathy, unspecified Z94.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 Office Visit 03/31/2016 10:57a [facility] [place] Lucie Gomez G00.1 Pneumococcal For Infectious Macnithinen, MLarryD. meningitis Diseases G93.40 Encephalopathy, unspecified Z94.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 Office Visit 03/31/2016 11:31a [facility] Gumaro G00.1 Pneumococcal Assoc,jose Mayfield M.D. meningitis Hospitalists R78.81 Bacteremia N17.9 Acute kidney failure, unspecified Office Visit 03/30/2016 11:30a [facility] G00.1 Pneumococcal Assoc,jose Mayfield M.D. meningitis Hospitalists R78.81 Bacteremia N17.9 Acute kidney failure, unspecified Office Visit 03/29/2016 11:28a [facility] Efe Manzo, G00.1 Pneumococcal Assoc,pc [place] meningitis Hospitalists R78.81 Bacteremia B17.9 Acute viral hepatitis, unspecified R40.2434 [place] coma scale score 3-8, 24+hrs Office Visit 03/28/2016 11:28a [facility] Efe Manzo, G00.1 Pneumococcal Assoc,pc [place] meningitis Hospitalists R78.81 Bacteremia N17.9 Acute kidney failure, unspecified Office Visit 03/27/2016 11:27a [facility] Manzo, G00.1 Pneumococcal Assoc,jose Schafer meningitis Hospitalists R78.81 Bacteremia N17.9 Acute kidney failure, unspecified Office Visit 03/26/2016 11:26a [facility] Manzo, G00.1 Pneumococcal Assoc,jose Schafer meningitis Hospitalists R78.81 Bacteremia N17.9 Acute kidney failure, unspecified R40.2434 [place] coma scale score 3-8, 24+hrs Office Visit 03/25/2016 10:49a [facility] [place] Lucie Gomez G00.1 Pneumococcal For Infectious [place] Mcghee meningitis Diseases G93.40 Encephalopathy, unspecified R50.9 Fever, unspecified Z94.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 Office Visit 03/25/2016 11:25a [facility] Manzo, G00.1 Pneumococcal Assoc,jose Schafer meningitis Hospitalists R78.81 Bacteremia N17.9 Acute kidney failure, unspecified R40.2434 [place] coma scale score 3-8, 24+hrs Office Visit 03/24/2016 11:24a [facility] Efe Lopezno, N17.9 Acute kidney Assoc,jose Schafer failure, Hospitalists unspecified G00.1 Pneumococcal meningitis R78.81 Bacteremia R40.2434 [place] coma scale score 3-8, 24+hrs Office Visit 03/24/2016 10:30a [facility] [place] Lucie Gomez G00.1 Pneumococcal For Infectious [place] Mcghee meningitis Diseases G93.40 Encephalopathy, unspecified R50.9 Fever, unspecified Z94.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 Office Visit 03/23/2016 11:24a [facility] Efe Manzo, J96.01 Acute respiratory Assoc,jose Merritt.D. failure with Hospitalists hypoxia G00.1 Pneumococcal meningitis R78.81 Bacteremia G40.901 Epilepsy, unsp, not intractable, with status epilepticus Office Visit 03/22/2016 11:23a [facility] Efe Manzo, J96.01 Acute respiratory Assoc,pc M.DLarry failure with Hospitalists hypoxia R78.81 Bacteremia G00.9 Bacterial meningitis, unspecified G40.901 Epilepsy, unsp, not intractable, with status epilepticus Office Visit 03/21/2016 10:19a [facility] [place] Lucie Gomez G00.1 Pneumococcal For Infectious [place] Mcghee meningitis Diseases G93.40 Encephalopathy, unspecified Z94.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 Office Visit 03/21/2016 [facility] Uri Pina J96.01 Acute respiratory 11:22a Assoc,pc Mojgan, D.O. failure with Hospitalists hypoxia N17.9 Acute kidney failure, unspecified R40.2432 [place] coma scale score 3-8, EMR G40.901 Epilepsy, unsp, not intractable, with status epilepticus Office Visit 03/20/2016 [facility] Uri Pina G40.901 Epilepsy, unsp, 11:21a Assoc,pc Mojgan, D.O. 

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
[2018-06-02 23:55] LABS: ABS Basophils 0 10^3/ul (0-0.2); ABS Eosinophils 0 10^3/ul (0-0.6); ABS Lymphocytes 0.3 10^3/ul (1.0-4.8); ABS Monocytes 0.1 10^3/ul (0-0.8); ABS Neutrophils 9.1 10^3/ul (1.5-7.7); ABS Nucleated RBC 0 10^3/ul; Eosinophil % 0 %; Hematocrit 24 % (42-52); Lymphocyte % 3.6 %; Mean Corpuscular HGB Conc 34 g/dl (31-36); Mean Corpuscular Hemoglobin 31 pg (27-31); Mean Corpuscular Volume 92 fL (80-94); Nucleated Red Blood Cells % 0; Platelet Count 61 10^3/ul (150-450); Red Blood Count 2.58 10^6/ul (4.00-5.40); Red Cell Distribution Width 20 % (10.5-15); White Blood Count 9.6 10^3/ul (3.5-10.8)
[2018-06-02 23:59] LABS: INR 0.96 (0.77-1.02)
[2018-06-03 00:11] LABS: BUN/Creatinine Ratio 10.7 (8-20); Calcium 9.2 mg/dL (8.6-10.3); EGFR Non-African American 5.2 (>60)
[2018-06-03 01:32] VITALS: BP 164/99
== END 2018-06-03 01:31 | disposition home or self-care (01) ==
LOC: ED 23:14
DX: T82.838A Hemorrhage due to vascular prosthetic devices, implants and grafts, initial encounter (principal); X58.XXXA Exposure to other specified factors, initial encounter; Y92.9 Unspecified place or not applicable; F32.9 Major depressive disorder, single episode, unspecified; C90.01 Multiple myeloma in remission; F17.290 Nicotine dependence, other tobacco product, uncomplicated
CPT/HCPCS: 36415; 80048; 85025; 85610; 99283

== ENCOUNTER 2018-12-14 10:47 | Observation (INO) | payer MEDICARE, MEDICAID ==
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
[2018-12-14] MEDS ORDERED: Ondansetron INJ* 2 MG/ML VIAL IV ONE (11:56)
[2018-12-14 12:29] LABS: ABS Eosinophils 0.2 10^3/ul (0-0.6); ABS Lymphocytes 0.7 10^3/ul (1.0-4.8); ABS Monocytes 0.6 10^3/ul (0-0.8); ABS Neutrophils 5.2 10^3/ul (1.5-7.7); Eosinophil % 2.7 %; Hematocrit 35 % (42-52); Hemoglobin 11.8 g/dL (14.0-18.0); Lymphocyte % 10.3 %; Mean Corpuscular HGB Conc 34 g/dL (31-36); Mean Corpuscular Hemoglobin 31 pg (27-31); Mean Corpuscular Volume 92 fL (80-94); Mean Platelet Volume 7.2 fL (7.4-10.4); Platelet Count 143 10^3/uL (150-450); Red Blood Count 3.84 10^6 /uL (4.18-5.48); Red Cell Distribution Width 17 % (10-15); White Blood Count 6.8 10^3/uL (3.5-10.8)
[2018-12-14 12:40] LABS: ALT 14 U/L (7-52); AST 17 U/L (13-39); Albumin 4.4 g/dL (3.2-5.2); Albumin/Globulin Ratio 1.9 (1-3); Alkaline Phosphatase 79 U/L (34-104); Anion Gap 20 mmol/L (2-11); Blood Urea Nitrogen 72 mg/dL (6-24); CO2 Carbon Dioxide 25 mmol/L (22-32); Calcium 9.7 mg/dL (8.6-10.3); Chloride 95 mmol/L (101-111); EGFR African American 5.3 (>60); EGFR Non-African American 4.4 (>60); Globulin 2.3 g/dL (2-4); Glucose 106 mg/dL (70-100); Potassium 3.8 mmol/L (3.5-5.0); Sodium 140 mmol/L (135-145); Total Protein 6.7 g/dL (6.4-8.9)
[2018-12-14 12:45] LABS: Troponin I 0.04 ng/mL (<0.04)
[2018-12-14] MEDS ORDERED: Loperamide CAP* 2 MG PO PRN (16:14)
[2018-12-14] MEDS ORDERED: Ondansetron INJ* 2 MG/ML VIAL IV PRN (16:14)
[2018-12-14] MEDS ORDERED: Acetaminophen TAB* 325 MG PO PRN (16:14)
[2018-12-14] MEDS ORDERED: Atorvastatin* 40 MG TAB PO SCH (17:00)
[2018-12-14 17:13] LABS: Urine Appearance Clear; Urine Bacteria 1+ (Absent); Urine Bilirubin Negative (Negative); Urine Blood 1+ (Negative); Urine Color Yellow; Urine Glucose 1+(50 mg/dL) (Negative); Urine Ketones Negative (Negative); Urine Nitrite Negative (Negative); Urine Protein 2+(100 mg/dL) (Negative); Urine Red Blood Cell 2+(6-10/hpf) (Absent); Urine Squamous Epithelial Cell Present (Absent); Urine Urobilinogen Negative (Negative); Urine White Blood Cell Trace(0-5/hpf) (Absent)
[2018-12-14] MEDS: Sevelamer TAB* 800 MG PO SCH (18:25)
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
[2018-12-14] MEDS ORDERED: Heparin DIALYSIS ONLY(*) 1,000 UNITS/ML VIAL DIALYSIS ONE (20:00)
[2018-12-14] MEDS ORDERED: QUEtiapine TAB* 25 MG PO SCH (21:00)
[2018-12-14] MEDS: Labetalol TAB* 300 MG PO SCH (21:41)
[2018-12-14] MEDS: Sodium Bicarbonate (ANTACID)* 650 MG TAB PO SCH (21:41)
[2018-12-14] MEDS: Acyclovir* 400 MG TAB PO SCH (21:41)
[2018-12-15] MEDS: Labetalol TAB* 300 MG PO SCH (05:39)
[2018-12-15 06:26] LABS: Hematocrit 32 % (42-52); Hemoglobin 10.7 g/dL (14.0-18.0); Mean Corpuscular HGB Conc 34 g/dL (31-36); Mean Corpuscular Hemoglobin 31 pg (27-31); Mean Corpuscular Volume 92 fL (80-94); Platelet Count 119 10^3/uL (150-450); Red Blood Count 3.43 10^6 /uL (4.18-5.48); Red Cell Distribution Width 16 % (10-15)
[2018-12-15 06:47] LABS: Albumin 3.8 g/dL (3.2-5.2); Albumin/Globulin Ratio 1.8 (1-3); BUN/Creatinine Ratio 5.5 (8-20); EGFR African American 5.8 (>60); EGFR Non-African American 4.8 (>60); Globulin 2.1 g/dL (2-4); Potassium 3.4 mmol/L (3.5-5.0); Total Bilirubin 0.7 mg/dL (0.2-1.0); Total Protein 5.9 g/dL (6.4-8.9)
[2018-12-15 07:31] VITALS: BP 114/72
[2018-12-15 08:02] LABS: ABS Eosinophils 0.2 10^3/ul (0-0.6); ABS Lymphocytes 0.8 10^3/ul (1.0-4.8); ABS Monocytes 0.6 10^3/ul (0-0.8); ABS Neutrophils 4.3 10^3/ul (1.5-7.7); Eosinophil % 2.9 %; Lymphocyte % 13.1 %
[2018-12-15] MEDS: Sodium Bicarbonate (ANTACID)* 650 MG TAB PO SCH (08:05)
[2018-12-15] MEDS: Sevelamer TAB* 800 MG PO SCH (08:06)
[2018-12-15] MEDS: Acyclovir* 400 MG TAB PO SCH (08:06)
[2018-12-15] MEDS ORDERED: Pantoprazole TAB * 40 MG TAB PO SCH (09:00)
[2018-12-15] MEDS ORDERED: Calcitriol CAP* 0.25 MCG PO SCH (09:00)
[2018-12-15] MEDS ORDERED: Potassium Chlor TAB* 20 MEQ TAB.ER PO SCH (09:00)
[2018-12-15] MEDS ORDERED: Magnesium Oxide TAB* 400 MG PO SCH (09:00)
[2018-12-15] MEDS ORDERED: Sertraline* 50 MG TAB PO SCH (09:00)
[2018-12-15] MEDS ORDERED: amLODIPine TAB* 5 MG PO SCH (09:00)
[2018-12-15] MEDS ORDERED: Mupirocin 2% OINT* TUBE TOPICAL SCH (09:00)
[2018-12-15] MEDS ORDERED: Cholecalciferol TAB* 1000 UNITS PO SCH (09:00)
--- NOTE | 2018-12-16 00:25 | DS ---
CC: Dr. Dawn * DISCHARGE SUMMARY: DATE OF ADMISSION: 12/14/18 DATE OF DISCHARGE: 12/15/18 PRIMARY CARE PROVIDER: Dr. Dawn. ATTENDING PHYSICIAN: Dr. Sykes * (dictated by Deysi Rossi NP) PRIMARY DIAGNOSES: 1. Nausea, vomiting, diarrhea. 2. Multiple myeloma. 3. End-stage renal disease. 4. Hypertension. STUDIES WHILE IN THE HOSPITAL: 1. Abdominal x-ray: Impression: No acute abdominal pelvic pathology evident. 2. EKG: Impression: Sinus bradycardia. DISCHARGE HOME MEDICATIONS: Continued home medications: 1. Sodium bicarbonate 1300 mg p.o. t.i.d. 2. Vitamin D 2000 units p.o. q.a.m. 3. Renvela 1600 mg p.o. t.i.d. 4. Zoloft 50 mg p.o. q.a.m. 5. Crestor 20 mg p.o. 1700. 6. Seroquel 25 mg p.o. at bedtime. 7. Potassium 40 mEq p.o. daily. 8. Prilosec 20 mg p.o. q.a.m. 9. Magnesium oxide 400 mg p.o. daily. 10. Labetalol 300 mg p.o. q.8 hours. 11. Norvasc 10 mg p.o. q.a.m. 12. Calcitriol 0.25 mcg p.o. daily. 13. Acyclovir 400 mg p.o. b.i.d. Changed home medications: No home medications changed. Discontinued home medications: No home medications discontinued. New home medications: No new home medications. HISTORY OF PRESENT ILLNESS/HOSPITAL COURSE: Mr. Mccurdy is a 53-year-old male with past medical history significant for multiple myeloma; ESRD, on peritoneal dialysis; amyloidosis; hypertension; TBI, who presented to the emergency department on 12/14/18 with chief complaint of nausea, vomiting and abdominal cramping x3 days. Please see history and physical dictated by PABLO Rodriguez, for complete summary of the events leading up to hospitalization, but in short, the patient has been experiencing the above mentioned symptoms for 3 days. While in the emergency department, he was found to have no white blood cell count, no significant metabolic derangement. Dr. Begum from Nephrology was consulted given the patient's history. Dr. Begum recommended peritoneal fluid cultures and observing overnight for deterioration related to peritonitis. Therefore, hospitalists were asked to consult for admission. During this hospitalization, the patient responded well to Zofran and did not require Imodium. The patient had peritoneal dialysis overnight without difficulty. The patient had peritoneal fluid cultures collected and sent. The patient remained stable. He remained afebrile, no tachycardia, no decreased oxygen saturation, no tachypnea. On assessment today, the patient is stable and requesting discharge. The patient informed that this provider was waiting for a call from Dr. Begum before discharge, which will be occurring momentarily. The patient then eloped without informing the staff. A call was placed by the charge nurse to the patient's home, who reported he was home safely and understood the risks of leaving without discharge instructions. It should be mentioned the patient did not have an IV as it was removed previously as it was irritating the patient. It should also be mentioned that Evi Cummings RN report she will follow up with the patient as an outpatient at home. The patient is stable for discharge, but once again, the patient eloped without discharge order or instructions. REVIEW OF SYSTEMS: The patient denies abdominal pain, cramping, nausea, vomiting, fever, chills. A 14-point review of systems was completed and all was negative. PHYSICAL EXAMINATION: Vital Signs: Temp 98.2, HR 67, RR 16, O2 saturation 99% on room air, BP 114/72. General: Mr. Mccurdy is a 53-year-old male, lying in bed. Appears to be in no acute distress. Appears his stated age. HEENT: EOMs intact. PERRLA. Oral mucosa is moist without lesion. Posterior oropharynx is clear. Neck: Supple. No lymphadenopathy. Cardiac: S1, S2 present. No murmurs, rubs, or gallops. Regular rate and rhythm. Respiratory: Lungs are clear. Good aeration. No wheezes, rhonchi, or rubs. Abdomen: Soft and nontender. Bowel sounds normoactive. No rigidity. No rebound tenderness. Extremities: No clubbing or cyanosis. No edema. Pedal pulses are 2+ bilaterally. Musculoskeletal: No pain or deformities. Skin: Grossly intact. No lesion. Neuro: Grossly intact. No focal deficits or weakness. DIAGNOSTIC STUDIES/LAB DATA: WBC 6.0, hemoglobin 10.7, hematocrit 32, platelets 119. Sodium 137, potassium 3.4, chloride 96, carbon dioxide 28, BUN 62, creatinine 11.18, glucose 104. DISCHARGE PLAN/FOLLOWUP: Once again, it should be mentioned that the patient was not discharged but eloped prior to receiving instructions and order. 1. Nausea, vomiting, and diarrhea: As mentioned in the HPI, the patient's symptoms resolved. The patient should follow up with his primary care provider in 1 to 3 days. If the patient has return of symptoms, he should return to the emergency department. 2. Multiple myeloma: The patient is on treatment for this at this time. This is the cause of the patient's end-stage renal disease. The patient is status post stem cell transplant. The patient should follow up with his skinner pelts. 3. End-stage renal disease: The patient should continue peritoneal dialysis. The patient should continue his bicarbonate, sevelamer, and vitamin D and potassium. The patient should follow up with his skinner pelts. 4. Hypertension: The patient should continue his home medications as same. FOLLOWUP: As mentioned above, the patient should continue his peritoneal dialysis and follow up with his skinner pelts as previously recommended. As mentioned in the HPI, Evi Cummings RN will be following up with the patient in the community. The patient was encouraged to follow up with his primary care , Dr. Dawn in 1 to 3 days. EDUCATION: The patient was educated on signs and symptoms of new and worsening condition and when to return to the emergency department. The patient stated understanding. TIME SPENT: Approximately 35 minutes was spent on this discharge. The patient was assessed prior to elopement. The patient did not allow time for discharge plan and instructions as he eloped from the facility. This is a summarized report of a complex medical history and hospital stay. For further details, please see the entire medical record. PLAN: This plan was discussed with my attending, Dr. Sykes, who is in agreement with my plan of care. DEYSI ROSSI, RADHA [id number]/[facility] #: [id number] [facility] HOSPITALRobel
== END 2018-12-15 12:05 | disposition home or self-care (01) ==
LOC: ED 10:47 → MED 16:14
PROVIDERS: ADMIT Hospitalist; ATTEND Internal Medicine
DX: R11.2 Nausea with vomiting, unspecified (principal); R19.7 Diarrhea, unspecified; C90.00 Multiple myeloma not having achieved remission; N18.6 End stage renal disease; I10 Essential (primary) hypertension; R00.1 Bradycardia, unspecified; Z79.899 Other long term (current) drug therapy; R42 Dizziness and giddiness; E78.00 Pure hypercholesterolemia, unspecified; F17.210 Nicotine dependence, cigarettes, uncomplicated; E86.0 Dehydration; Z99.2 Dependence on renal dialysis; Z88.0 Allergy status to penicillin
CPT/HCPCS: 36415; 74018; 80053; 81003; 81015; 82803; 83605; 83690; 83735; 84484; 85025; 85060; 87040; 87086; 93005; 96365; 96375; 99284; A9270-GY; G0378; J1644; J2405

== ENCOUNTER 2019-06-14 18:12 | Emergency (ER) | payer MEDICARE, MEDICAID ==
[2019-06-14 18:19] VITALS: BP 167/99
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
== END 2019-06-14 19:09 | disposition home health service (06) ==
LOC: UCEAST 18:12
DX: N50.89 Other specified disorders of the male genital organs (principal); I12.0 Hypertensive chronic kidney disease with stage 5 chronic kidney disease or end stage renal disease; N18.6 End stage renal disease; Z99.2 Dependence on renal dialysis; Z88.0 Allergy status to penicillin; F17.290 Nicotine dependence, other tobacco product, uncomplicated; N43.3 Hydrocele, unspecified; C90.01 Multiple myeloma in remission
CPT/HCPCS: 99212; G0463

== ENCOUNTER 2019-06-14 19:35 | Emergency (ER) | payer MEDICARE, MEDICAID ==
[2019-06-14 19:57] LABS: Urine Appearance Clear; Urine Bilirubin Negative (Negative); Urine Blood 1+ (Negative); Urine Color Yellow; Urine Glucose 1+(50 mg/dL) (Negative); Urine Ketones Negative (Negative); Urine Nitrite Negative (Negative); Urine Protein 2+(100 mg/dL) (Negative); Urine Urobilinogen Negative (Negative)
[2019-06-14 20:01] LABS: Urine Bacteria Absent (Absent); Urine Red Blood Cell 1+(3-5/hpf) (Absent); Urine Squamous Epithelial Cell Present (Absent); Urine White Blood Cell Trace(0-5/hpf) (Absent)
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
[2019-06-14 21:28] VITALS: BP 184/101
== END 2019-06-14 21:51 | disposition left against medical advice (07) ==
LOC: ED 19:35
DX: N50.89 Other specified disorders of the male genital organs (principal); N43.3 Hydrocele, unspecified; I12.0 Hypertensive chronic kidney disease with stage 5 chronic kidney disease or end stage renal disease; N18.6 End stage renal disease; Z99.2 Dependence on renal dialysis; C90.01 Multiple myeloma in remission; Z88.0 Allergy status to penicillin; F17.290 Nicotine dependence, other tobacco product, uncomplicated
CPT/HCPCS: 76870; 81003; 81015; 87086; 99283

== ENCOUNTER 2019-06-15 23:08 | Emergency (ER) | payer MEDICARE, MEDICAID ==
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
[2019-06-16 06:45] VITALS: BP 0/0
== END 2019-06-16 06:42 | disposition home or self-care (01) ==
LOC: ED 23:08
DX: N50.89 Other specified disorders of the male genital organs (principal); I12.9 Hypertensive chronic kidney disease with stage 1 through stage 4 chronic kidney disease, or unspecified chronic kidney disease; N18.9 Chronic kidney disease, unspecified; E78.00 Pure hypercholesterolemia, unspecified; F32.9 Major depressive disorder, single episode, unspecified; Z99.2 Dependence on renal dialysis; Z85.79 Personal history of other malignant neoplasms of lymphoid, hematopoietic and related tissues; F17.290 Nicotine dependence, other tobacco product, uncomplicated
CPT/HCPCS: 76870; 99282

== ENCOUNTER → 2019-06-21 10:59 | Day surgery (SDC) | payer MEDICARE, MEDICAID ==
[~2019-06-21 10:59] MED LIST changes: -Buffered Lidocaine 0.9% SYRIN* 5 ML/SYR SYRINGE INTRADERM ONE; -Cisatracurium* 2 MG/ML MDV 5 ML ONE; +Clindamycin 600 MG/D5W BAG(*) 600 MG/50 ML BAG IV ONE; -Famotidine IV* 10 MG/ML 2 ML (20 mg) IV ONE; +Heparin 2 UNITS/ML IVPREMIX* 1,000 ML IV ONE; +Heparin DIALYSIS ONLY(*) 1,000 UNITS/ML VIAL DIALYSIS ONE; -Lactated Ringers 1000 ML Bag* 1,000 ML IV SCH; +Lidocaine 1% w EPI 1:100,000* MDV 20 ML VIAL ONE; +Midazolam* 1 MG/ML 5 ML VIAL (5 MG) ONE; -Succinylcholine* 20 MG/ML 10 ML VIAL ONE; +fentaNYL* 50 MCG/ML 2 ML VIAL (100 MCG VIAL) ONE
[2019-06-21 12:12] LABS: INR 0.97 (0.82-1.09)
--- NOTE | 2019-06-21 13:48 | OP ---
Operative Report - Blank - Operative Report Date of Operation: 06/21/19 Note: Right Internal Jugular Tunneled Hemodialysis Catheter Placement Note: Procedure indication: Hemodialysis emt intermediate Access. Developed Hydrocele while on PD and switched to HD. Performed by Dr. Silvana Clancy, [facility] Nephrology 06/21/2019 Consent was obtained, in chart. Patient understands risks, benefits, alternatives and wants to proceed. Rt IJV patency was checked by US. Following strict hand hygiene and standard sterile precautions, a full sterile attire for myself and all personnel involved in the procedure, including a gown, cap, face mask with an eye shield, and double sterile gloves. The procedure started with 2 ID time out after marking the new proposed venotomy site. Patient was put in Trendelenburg position. Vascular US was used during the procedure. Right Neck and Chest were prepped with 2% Chlorhexidine, and the surgical field was surrounded by sterile surgical towels. A sterile full body drape was placed to cover the patient from head to toe. Rt IJ was chosen. Under real time US guidance the Rt IJV was accessed by a 21-G needle, then a 0.018 micro wire was threaded through the 21-G needle into the vein and the 21- G needle was pulled out, leaving the micro wire in, confirmed in the IJ-SVC by Fluoro, then a 4-Fr sheath and inner stylet were passed over the micro wire into the vein. Both, the micro wire and the inner stylet were removed and the 4-Fr sheath was kept in place. Then, a 0.035 Amplatz wire was passed through the 4- Fr sheath into the central circulation, confirmed by Fluoro in the Rt Atrium. Skin near the venotomy was nicked using # 11 Blade and extended to 0.5 cm long, then was dilated using a curved Cynthia. Bleeding was controlled by pressure over the dilated venotomy site. A 19 cm Palindrome TDC was chosen. The proposed tunnel & exit site were numbed thoroughly with 10 cc of 1% Lidocaine w/o Epi. The exit site was created using # 11 Blade and extended to 0.5 cm long. Exit was dissected bluntly using a curved Cynthia. A blunt tunneler was bent and used to pull the Glidepath TDC from the exit site to the venotomy site and was placed just behind the Amplatz wire. Sequential dilatation of the venotomy using 12 then 14 Fr the 16 Fr dilator and peel away sheath after the 4-Fr sheath was removed over the 0.035 Amplatz wire was performed. Dilator and wire were removed and the 19 cm Glidepath TDC was fed through the peel away sheath that was peel away carefully. Tip of TDC Catheter seen under Fluoro at the Cavo-atrial junction. Both ports checked for flow and draw and both worked very well then flushed again with saline and locked with 1:100 Heparin. 1.6 ml in each port. Caps were applied over both ports. The catheter was secured and tethered in place using 2-0 Nylon sutures at the exit site. The venotomy site was repaired using 3-0 Vicryl. Upright CXR ordered stat to r/o any complications. Complications: None Estimated Bleeding: < 5cc Post Op Meds: Clindamycin 600 mg IVPB Sedation: Fentanyl: 25 Mcg Versed: 1 mg
[2019-06-21 15:45] VITALS: BP 154/85
== END | disposition home or self-care (01) ==
LOC: CHICATH 10:59
PROVIDERS: ATTEND Internal Medicine Nephrology
DX: I12.9 Hypertensive chronic kidney disease with stage 1 through stage 4 chronic kidney disease, or unspecified chronic kidney disease (principal); N18.6 End stage renal disease; N43.3 Hydrocele, unspecified; C90.00 Multiple myeloma not having achieved remission; Z99.2 Dependence on renal dialysis
CPT/HCPCS: 36415; 36558; 71045; 76937; 77001; 85610; 99156; 99157; C1769; J1642; J1644; J2250; J3010

== ENCOUNTER → 2019-08-24 05:34 | Day surgery (SDC) | payer MEDICARE, MEDICAID ==
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
[~2019-08-24 05:34] MED LIST changes: +Buffered Lidocaine 1% SYRIN* 1 ML/SYRINGE INTRADERM ONE; -Clindamycin 600 MG/D5W BAG(*) 600 MG/50 ML BAG IV ONE; -Heparin DIALYSIS ONLY(*) 1,000 UNITS/ML VIAL DIALYSIS ONE; +Lidocaine 1% INJ* 10 MG/ML 30 ML SDV ONE; -Lidocaine 1% w EPI 1:100,000* MDV 20 ML VIAL ONE; -Midazolam* 1 MG/ML 5 ML VIAL (5 MG) ONE; +NS 0.9% 1000 ML** 1,000 ML IV SCH; -fentaNYL* 50 MCG/ML 2 ML VIAL (100 MCG VIAL) ONE
[2019-08-24 06:01] VITALS: BP 157/99
[2019-08-24 06:39] LABS: Calcium 9.7 mg/dL (8.6-10.3); EGFR African American 7.2 (>60)
[2019-08-24 06:41] LABS: Potassium 6.2 mmol/L (3.5-5.0)
--- NOTE | 2019-08-24 09:12 | PN ---
CC: Dr. Luca Ceballos; [facility]; [facility] Nephrology; Primary Care Doctor PROGRESS NOTE: DATE OF SERVICE: 08/24/19 HISTORY: Mr. Mccurdy is a 54-year-old gentleman with end-stage renal disease, who came to preoperati ve area today for planned first stage of AV fistula with Dr. Ceballos and removal of PD catheter with Robel Wang. The patient was noted to have elevated potassium and the decision was made to postpone franki marian until the patient was dialyzed. The patient's dialysis is Thursday, Wednesdays, and Fridays. The patient's case was discussed with Nephrology and sent over to that department. I evaluated the pa manasa in that department. He was doing well with no evidence of infection or pain and successfully u ndergoing hemodialysis and the patient wished to postpone surgery with the knowledge that it may not go this week or next week and due to the coronavirus, may not go for quite some time. The patient is aware of this. We could certainly do this at a later date since he is adequately being dialyzed thr ough a tunnel catheter. The patient's questions were answered and the patient is discharged home fro m the purpose of same day surgical plan. [id number]/[facility] #: [id number]
== END | disposition home or self-care (01) ==
LOC: OR 05:34
PROVIDERS: ATTEND Surgery
DX: I12.0 Hypertensive chronic kidney disease with stage 5 chronic kidney disease or end stage renal disease (principal); N18.6 End stage renal disease; E87.5 Hyperkalemia; Z99.2 Dependence on renal dialysis; Z53.09 Procedure and treatment not carried out because of other contraindication; N40.0 Benign prostatic hyperplasia without lower urinary tract symptoms; E66.9 Obesity, unspecified
CPT/HCPCS: 36415; 80048; J1644

== ENCOUNTER 2019-08-30 05:35 | Day surgery (SDC) | payer MEDICARE, MEDICAID ==
[~2019-08-30 05:35] MED LIST changes: -Heparin 2 UNITS/ML IVPREMIX* 1,000 ML IV ONE; -Lidocaine 1% INJ* 10 MG/ML 30 ML SDV ONE; -NS 0.9% 1000 ML** 1,000 ML IV SCH
[2019-08-30] MEDS ORDERED: Famotidine IV* 10 MG/ML 2 ML (20 mg) ONE (05:40)
[2019-08-30] MEDS ORDERED: Famotidine IV* 10 MG/ML 2 ML (20 mg) IV ONE (06:00)
[2019-08-30] MEDS ORDERED: NS 0.45% 1000 ML BAG* 1,000 ML IV SCH (06:00)
[2019-08-30 06:55] LABS: BUN/Creatinine Ratio 3.9 (8-20); Calcium 9.7 mg/dL (8.6-10.3); EGFR African American 8.3 (>60); EGFR Non-African American 6.9 (>60)
[2019-08-30 06:59] LABS: Potassium 5.8 mmol/L (3.5-5.0)
[2019-08-30] MEDS ORDERED: Lidocaine 2% PF * 5 ML VIAL ONE (07:16)
[2019-08-30] MEDS ORDERED: Dexamethasone IV* 4 MG/ML 1 ML (4 MG) ONE (07:16)
[2019-08-30] MEDS ORDERED: Propofol* 10 MG/ML 20 ML BTL ONE ×2 (07:16→08:32)
[2019-08-30] MEDS ORDERED: Ondansetron INJ* 2 MG/ML VIAL ONE (07:16)
[2019-08-30] MEDS ORDERED: Midazolam* 1 MG/ML 5 ML VIAL (5 MG) ONE ×2 (07:17→07:48)
[2019-08-30] MEDS ORDERED: KETAMINE HCL* 50 MG/ML 10 ML VIAL ONE (07:17)
[2019-08-30] MEDS ORDERED: fentaNYL* 50 MCG/ML 2 ML VIAL (100 MCG VIAL) ONE (07:17)
[2019-08-30] MEDS ORDERED: Clindamycin 900 MG/D5W BAG(*) 900 MG/50 ML BAG IVPB ONE (07:18)
[2019-08-30] MEDS ORDERED: Bupivacaine 0.25% SDV* 30 ML ONE (07:26)
[2019-08-30] MEDS ORDERED: Lidocaine 1% INJ* 10 MG/ML 30 ML SDV ONE ×2 (07:26→07:46)
[2019-08-30] MEDS ORDERED: Bupivacaine 0.25% EPI 200,000* 30 ML SDV ONE (07:27)
[2019-08-30] MEDS ORDERED: Heparin 2 UNITS/ML IVPREMIX* 1,000 ML IV ONE (07:28)
[2019-08-30] MEDS ORDERED: Bupivacaine 0.5% W/EPI SDV* 30 ML VIAL ONE (07:46)
[2019-08-30] MEDS ORDERED: Bacitracin OINTMENT* 0.5% 0.5 oz TUBE ONE (08:12)
--- NOTE | 2019-08-30 08:30 | OP ---
Operative Report - Blank - Operative Report Date of Operation: 08/30/19 Note: Pre-OP Diagnoses: ESRD, Post-op Diagnosis: same Procedure: Removal of peritoneal dialysis catheter Surgeon: Felipe Asst: none Anesthesia: local MAC EBL: minimal IVF: crystalloid Specimen: none Drains: none
[2019-08-30] MEDS ORDERED: Propofol* 500 MG/50 ML BTL ONE (08:33)
[2019-08-30] MEDS ORDERED: Heparin DIALYSIS ONLY(*) 1,000 UNITS/ML VIAL ONE (08:44)
--- NOTE | 2019-08-30 09:13 | OP ---
DATE OF OPERATION: 08/30/19 [facility] DATE OF : 61 SURGEON: Randy Wang MD. LABORATORY MILLER: None. ANESTHESIOLOGIST: Dr. Polo. ANESTHESIA: Local MAC anesthesia. PRE-OP DIAGNOSIS: End-stage renal disease, currently on hemodialysis. POST-OP DIAGNOSIS: End-stage renal disease, currently on hemodialysis. OPERATIVE PROCEDURE: Removal of peritoneal dialysis catheter. ESTIMATED BLOOD LOSS: Minimal. FLUIDS: Minimal crystalloid fluid given. SPECIMEN: None. INDICATIONS: Mr. Mccurdy is a 54-year-old gentleman who has end-stage renal disease, on peritoneal dialysis up until approximately 2 months ago when he had significant scrotal swelling. The patient converted to hemodialysis and for this, I saw him in my office and recommended a diagnostic laparoscopy to review if there are any hernias or any other etiology for poorly functional peritoneal dialysis. The patient wished to continue with the hemodialysis and have the peritoneal dialysis catheter removed. I outlined the details of the procedure, going over the risks, benefits, and alternatives which included, but not limited to, bleeding, infection, inability to remove the catheter without exploratory laparotomy. The patient agreed. Consent was signed. DESCRIPTION OF PROCEDURE: He was met in the preoperative area. His abdomen was marked. He presented to the hospital today for the purpose of AV fistula creation with Vascular Surgery. The patient was aware of all this, went back to the operating room, and placed on the operating table in the supine position. Preoperative antibiotics given. Sequential devices placed on bilateral lower extremities. Sedation was given, and the patient's abdomen was prepped and draped with Betadine and a time-out was performed. A stepping down incision was made over the left rectus muscle. This was deepened down through the subcutaneous fat down to the tubing. Tubing was isolated and the subcutaneous cuff was removed from the subcutaneous fat and cut so that we could remove it through the exit site. We then dissected down onto the catheter towards the abdomen and freed the intramuscular cuff with cautery and the catheter was removed in its entirety. Hemostasis was achieved. We irrigated the wound. We reapproximated the scarred area overlying the rectus muscle with 2-0 Vicryl suture and then reapproximated the skin with skin jeff followed by a sterile dressing. Antibiotic ointment was applied to the exit site. The patient tolerated the procedure well and the case was given back to the vascular surgeon. [id number]/CPS #: [id number] MTDD
[2019-08-30] MEDS ORDERED: fentaNYL* 50 MCG/ML 2 ML VIAL (100 MCG VIAL) IV PRN (09:35)
[2019-08-30] MEDS ORDERED: Ondansetron INJ* 2 MG/ML VIAL IV PRN (09:35)
[2019-08-30] MEDS ORDERED: Naloxone* 0.4 MG/ML 1 ML VIAL IV PRN (09:35)
[2019-08-30 10:50] VITALS: BP 139/86
--- NOTE | 2019-08-30 10:59 | OP ---
DATE OF OPERATION: 08/30/19 [facility] DATE OF : 61 SURGEON: Luca Ceballos MD. OFFBEARER: Mary Borrero NP. ANESTHESIA: Local plus MAC by Dr. Polo. PRE-OP DIAGNOSIS: End-stage renal disease. POST-OP DIAGNOSIS: End-stage renal disease. OPERATIVE PROCEDURE: Left brachiobasilic fistula (first stage basilic vein transposition). ESTIMATED BLOOD LOSS: None. INDICATIONS: The patient is a 54-year-old male with end-stage renal disease, undergoing hemodialysis via tunneled catheter. The patient was prior to this undergoing peritoneal dialysis, but complications from the peritoneal dialysis catheter required him to be switched to hemodialysis. For this reason, the patient is being admitted today for establishment of an arteriovenous fistula. Prior to this procedure, Dr. Wang removed the malfunctioning peritoneal dialysis catheter; separate dictation for that procedure. DESCRIPTION OF PROCEDURE: The patient was placed in the supine position. He underwent ultrasound mapping of the basilic vein as well as the brachial artery under ultrasound guidance. After this was done, proper identification of the patient and site of surgery, he was then prepped and draped in the usual sterile fashion. After proper timeout, we proceeded to infiltrate lidocaine 1% in the antecubital fossa of the left arm. An oblique incision was performed in this area. The incision was carried down through the skin and subcutaneous tissue. Bleeders were controlled by electro-coagulation, and after this was completed, we then proceeded to identify the basilic vein at the junction with the cephalic vein. Dissection was carried around the basilic vein, the interconnected vein, and the cephalic vein. Vessel loops were placed around the vein, and after this was completed, we then proceeded to tie off and divide the cephalic vein to leave flow only to the basilic vein. After this was done, we then proceeded to expose the brachial artery, the forearm fascia. This was then exposed taking care to avoid the nerve. The brachial artery was encircled in vessel loops, and after this was completed, the patient received 3000 units of heparin. We then proceeded to detach the distal end of the basilic vein. The distal end was ligated and clipped, and the proximal end was then used and spatulated for anastomosis. Using coronary dilators, they were advanced easily up to a size of 3 mm. Good irrigation was noted using heparinized saline. We then proceeded to cross-clamp the basilic vein with a YASARG[employer] family and consumer sciences professor. After this was done, we then proceeded to cross-clamp the distal end of the brachial artery and the proximal end. Once this was completed, we then proceeded to perform an arteriotomy using an 11 blade and extending it with Agarwal scissors. After this was completed, an end-to-end anastomosis was done using 6-0 Prolene in a parachute technique. This was then brought down and the anastomosis was completed. We proceeded to release the YASARGIL and the distal clamp on the arterial side and the proximal clamp. There was no evidence of bleeding. There was excellent flow into the basilic vein. There was a thrill palpable up to the mid arm and with the Doppler one could hear the thrill up to the upper third of the arm. At this point, we then proceeded to check the area for hemostasis. No bleeding was noted. The subcutaneous tissue was then closed with 4-0 Vicryl sutures, and the skin was closed with subcuticular 5-0 Monocryl and Steri-Strips. The patient at the end of the procedure had excellent palpable pulses at the radial. The patient tolerated the procedure well and was taken in good condition to the recovery room. [id number]/[facility] #: [id number] TONE
== END 2019-08-30 11:30 | disposition home or self-care (01) ==
LOC: OR 05:35
PROVIDERS: ATTEND Surgery
DX: I12.9 Hypertensive chronic kidney disease with stage 1 through stage 4 chronic kidney disease, or unspecified chronic kidney disease (principal); N18.6 End stage renal disease; Z99.2 Dependence on renal dialysis; N40.0 Benign prostatic hyperplasia without lower urinary tract symptoms; F41.8 Other specified anxiety disorders; M19.90 Unspecified osteoarthritis, unspecified site; Z85.820 Personal history of malignant melanoma of skin; Z88.0 Allergy status to penicillin
CPT/HCPCS: 36415; 80048; A9270-GY; J1100; J1642; J1644; J2250; J2405; J2704; J3010; J3490

== ENCOUNTER 2020-03-01 14:54 | Inpatient (IN) ==
[2020-03-01 15:21] LABS: ABS Basophils 0.1 10^3/ul (0-0.2); ABS Eosinophils 0.2 10^3/ul (0-0.6); ABS Lymphocytes 0.5 10^3/ul (1.0-4.8); ABS Monocytes 0.6 10^3/ul (0-0.8); ABS Neutrophils 6.3 10^3/ul (1.5-7.7); Eosinophil % 2.2 %; Hematocrit 22 % (42-52); Hemoglobin 7.2 g/dL (14.0-18.0); Lymphocyte % 5.9 %; Mean Corpuscular HGB Conc 33 g/dL (31-36); Mean Corpuscular Hemoglobin 28 pg (27-31); Mean Corpuscular Volume 85 fL (80-94); Mean Platelet Volume 6.1 fL (7.4-10.4); Platelet Count 201 10^3/uL (150-450); Red Blood Count 2.54 10^6 /uL (4.18-5.48); Red Cell Distribution Width 15 % (10-15); White Blood Count 7.7 10^3/uL (3.5-10.8)
[2020-03-01 15:50] LABS: ALT 4 U/L (7-52); AST 6 U/L (13-39); Albumin/Globulin Ratio 1.8 (1-3); Alkaline Phosphatase 68 U/L (34-104); Anion Gap 15 mmol/L (2-11); BUN/Creatinine Ratio 5.5 (8-20); Blood Urea Nitrogen 43 mg/dL (6-24); CO2 Carbon Dioxide 25 mmol/L (22-32); Calcium 9.6 mg/dL (8.6-10.3); Chloride 98 mmol/L (101-111); EGFR African American 8.7 (>60); EGFR Non-African American 7.2 (>60); Globulin 2.2 g/dL (2-4); Glucose 90 mg/dL (70-100); Potassium 5.4 mmol/L (3.5-5.0); Sodium 138 mmol/L (135-145); Total Protein 6.2 g/dL (6.4-8.9)
[2020-03-01 15:52] LABS: Troponin I 0.05 ng/mL (<0.03)
[2020-03-01] MEDS ORDERED: EPOETIN ALFA DIALYSIS SCH (16:30)
[2020-03-01] MEDS ORDERED: Furosemide 40 mg/4 ml IV VIAL IV SLOW PU ONE (16:45)
[2020-03-01] MEDS ORDERED: Furosemide 40 mg/4 ml IV VIAL IV SLOW PU STA (16:57)
[2020-03-01 17:50] LABS: Activated Partial Thrombo Time 32.3 seconds (26.0-38.0); INR 1.21 (0.82-1.09)
[2020-03-01] MEDS: Labetalol IV 5 MG/ML 20 ml VIAL IV PUSH PRN (19:50)
[2020-03-01] MEDS: Labetalol 300 mg TAB PO SCH (20:10)
[2020-03-01] MEDS: Sodium Bicarb 650 mg (ANTACID) TAB PO SCH (20:10)
[2020-03-01 20:36] LABS: BUN/Creatinine Ratio 5.5 (8-20); Blood Urea Nitrogen 46 mg/dL (6-24); CO2 Carbon Dioxide 27 mmol/L (22-32); Calcium 9.1 mg/dL (8.6-10.3); Chloride 99 mmol/L (101-111); EGFR African American 8.1 (>60); EGFR Non-African American 6.7 (>60); Glucose 90 mg/dL (70-100); Sodium 137 mmol/L (135-145)
[2020-03-01 20:40] LABS: Anion Gap 11 mmol/L (2-11); Potassium 5.2 mmol/L (3.5-5.0)
[2020-03-01 20:43] LABS: Troponin I 0.05 ng/mL (<0.03)
[2020-03-01] MEDS ORDERED: Labetalol 300 mg TAB PO SCH (21:00)
[2020-03-02] MEDS: Labetalol IV 5 MG/ML 20 ml VIAL IV PUSH PRN (00:36)
[2020-03-02 06:51] LABS: BUN/Creatinine Ratio 5.9 (8-20); Calcium 9.2 mg/dL (8.6-10.3); EGFR African American 7.2 (>60); Magnesium 1.7 mg/dL (1.9-2.7); Phosphorus 5.9 mg/dL (2.5-5.0)
[2020-03-02 06:52] LABS: Potassium 5.6 mmol/L (3.5-5.0)
[2020-03-02 07:14] LABS: ABS Basophils 0.1 10^3/ul (0-0.2); ABS Eosinophils 0.2 10^3/ul (0-0.6); ABS Lymphocytes 0.4 10^3/ul (1.0-4.8); ABS Monocytes 0.5 10^3/ul (0-0.8); ABS Neutrophils 4.7 10^3/ul (1.5-7.7); Eosinophil % 2.9 %; Hematocrit 19 % (42-52); Hemoglobin 6.4 g/dL (14.0-18.0); Lymphocyte % 7.6 %; Mean Corpuscular HGB Conc 34 g/dL (31-36); Mean Corpuscular Hemoglobin 29 pg (27-31); Mean Corpuscular Volume 85 fL (80-94); Mean Platelet Volume 6.5 fL (7.4-10.4); Platelet Count 140 10^3/uL (150-450); Red Blood Count 2.19 10^6 /uL (4.18-5.48); Red Cell Distribution Width 15 % (10-15); White Blood Count 5.8 10^3/uL (3.5-10.8)
[2020-03-02] MEDS ORDERED: Furosemide 40 mg/4 ml IV VIAL IV SLOW PU ONE (07:24)
[2020-03-02] MEDS: Labetalol 300 mg TAB PO SCH ×3 (08:16→20:53)
[2020-03-02] MEDS: Sodium Bicarb 650 mg (ANTACID) TAB PO SCH ×3 (12:21→20:53)
[2020-03-02] MEDS: Heparin 1,000 UNIT/ML 10 ml (10,000 UNITS) CATHLAB/DIALYSIS DIALYSIS ONE ×2 (18:01→18:35)
[2020-03-02] MEDS ORDERED: Vancomycin 1,500 MG in NS 0.9% 250 ml 250 ML IVPB ONE (23:45)
[2020-03-03] MEDS ORDERED: Lorazepam PYXIS KEY PRN (01:20)
[2020-03-03] MEDS ORDERED: LORazepam 2 mg VIAL 1 ml IV PUSH ONE (01:20)
[2020-03-03 05:06] LABS: Hematocrit 23 % (42-52); Hemoglobin 7.7 g/dL (14.0-18.0); Mean Corpuscular HGB Conc 33 g/dL (31-36); Mean Corpuscular Hemoglobin 29 pg (27-31); Mean Corpuscular Volume 86 fL (80-94); Mean Platelet Volume 6.6 fL (7.4-10.4); Platelet Count 127 10^3/uL (150-450); Red Blood Count 2.68 10^6 /uL (4.18-5.48); Red Cell Distribution Width 15 % (10-15); White Blood Count 11.2 10^3/uL (3.5-10.8)
[2020-03-03 05:23] LABS: BUN/Creatinine Ratio 5.9 (8-20); Calcium 8.5 mg/dL (8.6-10.3); EGFR African American 11.3 (>60); EGFR Non-African American 9.4 (>60); Magnesium 1.6 mg/dL (1.9-2.7); Phosphorus 2.8 mg/dL (2.5-5.0); Potassium 4.4 mmol/L (3.5-5.0)
[2020-03-03] MEDS ORDERED: Haloperidol 5 mg/ml SDV IV/IM 5 MG/ML AMP IM PRN (06:27)
[2020-03-03] MEDS ORDERED: Haloperidol 5 mg/ml SDV IV/IM 5 MG/ML AMP ONE (06:33)
[2020-03-03] MEDS ORDERED: Vancomycin per Pharmacy 1 EA NOTE FOLLOW UP PRN (06:34)
[2020-03-03] MEDS ORDERED: Magnesium Sulf 4 GM/100 ML IV 4,000 MG/100 ML BAG IVPB ONE (07:30)
[2020-03-03] MEDS: Labetalol 300 mg TAB PO SCH ×2 (09:04→14:45)
[2020-03-03] MEDS: Sodium Bicarb 650 mg (ANTACID) TAB PO SCH ×2 (14:38→14:45)
[2020-03-04] MEDS: Sodium Bicarb 650 mg (ANTACID) TAB PO SCH ×4 (00:31→21:36)
[2020-03-04] MEDS: Labetalol 300 mg TAB PO SCH ×4 (00:31→21:36)
[2020-03-04 06:57] LABS: Hematocrit 22 % (42-52); Hemoglobin 7.5 g/dL (14.0-18.0); Mean Corpuscular HGB Conc 34 g/dL (31-36); Mean Corpuscular Hemoglobin 30 pg (27-31); Mean Corpuscular Volume 86 fL (80-94); Mean Platelet Volume 6.8 fL (7.4-10.4); Platelet Count 128 10^3/uL (150-450); Red Blood Count 2.55 10^6 /uL (4.18-5.48); Red Cell Distribution Width 15 % (10-15); White Blood Count 5.9 10^3/uL (3.5-10.8)
[2020-03-04 07:11] LABS: BUN/Creatinine Ratio 5.9 (8-20); EGFR African American 8.1 (>60); EGFR Non-African American 6.7 (>60)
[2020-03-04 07:14] LABS: Potassium 5.1 mmol/L (3.5-5.0)
[2020-03-04] MEDS ORDERED: Vancomycin - DIALYSIS DOSING 1 EA NOTE FOLLOW UP SCH (12:00)
[2020-03-04] MEDS ORDERED: Magnesium Hydroxide LIQ 30 ML UDC PO PRN (14:02)
[2020-03-05 03:30] LABS: Hematocrit 20 % (42-52); Hemoglobin 6.6 g/dL (14.0-18.0)
[2020-03-05] MEDS ORDERED: Vancomycin Random Level NOTE FOLLOW UP ONE (06:00)
[2020-03-05 07:45] LABS: ABS Basophils 0.1 10^3/ul (0-0.2); ABS Eosinophils 0.3 10^3/ul (0-0.6); ABS Lymphocytes 0.5 10^3/ul (1.0-4.8); ABS Monocytes 0.5 10^3/ul (0-0.8); ABS Neutrophils 3.9 10^3/ul (1.5-7.7); Eosinophil % 5.6 %; Hematocrit 22 % (42-52); Hemoglobin 7.3 g/dL (14.0-18.0); Lymphocyte % 8.7 %; Mean Corpuscular HGB Conc 34 g/dL (31-36); Mean Corpuscular Hemoglobin 29 pg (27-31); Mean Corpuscular Volume 86 fL (80-94); Mean Platelet Volume 7.1 fL (7.4-10.4); Platelet Count 125 10^3/uL (150-450); Red Blood Count 2.51 10^6 /uL (4.18-5.48); Red Cell Distribution Width 15 % (10-15); White Blood Count 5.3 10^3/uL (3.5-10.8)
[2020-03-05 08:05] LABS: Albumin 3.4 g/dL (3.2-5.2); Albumin/Globulin Ratio 1.6 (1-3); BUN/Creatinine Ratio 6.5 (8-20); Calcium 9.1 mg/dL (8.6-10.3); EGFR African American 6.7 (>60); EGFR Non-African American 5.5 (>60); Globulin 2.1 g/dL (2-4); Magnesium 2.7 mg/dL (1.9-2.7); Phosphorus 4.7 mg/dL (2.5-5.0); Total Bilirubin 0.6 mg/dL (0.2-1.0); Total Protein 5.5 g/dL (6.4-8.9)
[2020-03-05] MEDS: Sodium Bicarb 650 mg (ANTACID) TAB PO SCH ×2 (09:33→19:32)
[2020-03-05] MEDS: Labetalol 300 mg TAB PO SCH ×3 (09:34→22:30)
[2020-03-05 11:38] LABS: C Reactive Protein 47.35 mg/L (<8.01)
[2020-03-05] MEDS: Heparin 1,000 UNIT/ML 10 ml (10,000 UNITS) CATHLAB/DIALYSIS DIALYSIS ONE ×3 (12:48→14:56)
[2020-03-05] MEDS ORDERED: Vancomycin 750 MG in NS 0.9% 250 ML IVPB ONE (18:00)
[2020-03-05 23:08] LABS: Hepatitis Be Antibody Negative (Negative)
[2020-03-06 00:33] LABS: Hepatitis Be Antigen Negative (Negative)
[2020-03-06 06:22] LABS: ABS Eosinophils 0.2 10^3/ul (0-0.6); ABS Lymphocytes 0.5 10^3/ul (1.0-4.8); ABS Monocytes 0.5 10^3/ul (0-0.8); ABS Neutrophils 5.7 10^3/ul (1.5-7.7); Eosinophil % 3.3 %; Hematocrit 24 % (42-52); Hemoglobin 8.3 g/dL (14.0-18.0); Lymphocyte % 6.6 %; Mean Corpuscular HGB Conc 34 g/dL (31-36); Mean Corpuscular Hemoglobin 29 pg (27-31); Mean Corpuscular Volume 86 fL (80-94); Mean Platelet Volume 6.7 fL (7.4-10.4); Platelet Count 144 10^3/uL (150-450); Red Blood Count 2.85 10^6 /uL (4.18-5.48); Red Cell Distribution Width 15 % (10-15)
[2020-03-06 06:44] LABS: BUN/Creatinine Ratio 5.3 (8-20); Calcium 9.4 mg/dL (8.6-10.3); EGFR African American 10.3 (>60); EGFR Non-African American 8.5 (>60); Potassium 4.9 mmol/L (3.5-5.0)
[2020-03-06] MEDS ORDERED: Midazolam 5 mg/5 ml VIAL 1 mg/ml 5 ml VIAL (5 mg) ONE (08:04)
[2020-03-06] MEDS ORDERED: fentaNYL 100 mcg/2 ml 50 MCG/ML VIAL ONE (08:05)
[2020-03-06] MEDS ORDERED: Naloxone 0.4 mg VIAL 0.4 mg/ml 1 ml VIAL ONE (08:05)
[2020-03-06] MEDS ORDERED: Flumazenil 0.5 mg/5 ml 0.1 MG/ML 5 ml VIAL ONE (08:05)
[2020-03-06] MEDS: Labetalol 300 mg TAB PO SCH ×3 (12:49→20:42)
[2020-03-07] MEDS ORDERED: Vancomycin Random Level NOTE FOLLOW UP ONE (06:00)
[2020-03-07 07:05] LABS: ABS Basophils 0.2 10^3/ul (0-0.2); ABS Eosinophils 0.3 10^3/ul (0-0.6); ABS Lymphocytes 0.5 10^3/ul (1.0-4.8); ABS Monocytes 0.6 10^3/ul (0-0.8); ABS Neutrophils 6.3 10^3/ul (1.5-7.7); Eosinophil % 3.7 %; Hematocrit 24 % (42-52); Hemoglobin 8.3 g/dL (14.0-18.0); Lymphocyte % 6.1 %; Mean Corpuscular HGB Conc 35 g/dL (31-36); Mean Corpuscular Hemoglobin 30 pg (27-31); Mean Corpuscular Volume 86 fL (80-94); Platelet Count 134 10^3/uL (150-450); Red Blood Count 2.77 10^6 /uL (4.18-5.48); Red Cell Distribution Width 15 % (10-15)
[2020-03-07 07:24] LABS: BUN/Creatinine Ratio 5.3 (8-20); Calcium 9.5 mg/dL (8.6-10.3); EGFR African American 7.8 (>60); EGFR Non-African American 6.4 (>60)
[2020-03-07 07:28] LABS: Potassium 5.1 mmol/L (3.5-5.0)
[2020-03-07] MEDS ORDERED: NS 0.9% 500 ml BAG 500 ML IV PRN (08:46)
[2020-03-07] MEDS ORDERED: Albumin Human 25% 12.5 GM/50 ML BTL IV PRN (08:47)
[2020-03-07] MEDS ORDERED: Heparin 1,000 UNIT/ML 10 ml (10,000 UNITS) CATHLAB/DIALYSIS DIALYSIS ONE (09:00)
[2020-03-07] MEDS ORDERED: Haloperidol 5 mg/ml SDV IV/IM 5 MG/ML AMP IM PRN (11:18)
[2020-03-07] MEDS: Labetalol 300 mg TAB PO SCH ×3 (11:22→22:54)
[2020-03-08 07:11] LABS: ABS Basophils 0.2 10^3/ul (0-0.2); ABS Eosinophils 0.4 10^3/ul (0-0.6); ABS Lymphocytes 0.7 10^3/ul (1.0-4.8); ABS Monocytes 0.7 10^3/ul (0-0.8); ABS Neutrophils 7.5 10^3/ul (1.5-7.7); Eosinophil % 3.8 %; Hematocrit 25 % (42-52); Hemoglobin 8.6 g/dL (14.0-18.0); Mean Corpuscular HGB Conc 34 g/dL (31-36); Mean Corpuscular Hemoglobin 30 pg (27-31); Mean Corpuscular Volume 86 fL (80-94); Mean Platelet Volume 6.7 fL (7.4-10.4); Platelet Count 170 10^3/uL (150-450); Red Blood Count 2.91 10^6 /uL (4.18-5.48); Red Cell Distribution Width 15 % (10-15); White Blood Count 9.4 10^3/uL (3.5-10.8)
[2020-03-08 07:27] LABS: Calcium 10.2 mg/dL (8.6-10.3); EGFR African American 6.7 (>60); EGFR Non-African American 5.5 (>60)
[2020-03-08 07:29] LABS: Potassium 5.8 mmol/L (3.5-5.0)
[2020-03-08] MEDS ORDERED: Heparin 1,000 UNIT/ML 10 ml (10,000 UNITS) CATHLAB/DIALYSIS DIALYSIS ONE (07:30)
[2020-03-08] MEDS: Labetalol 300 mg TAB PO SCH ×3 (10:28→20:37)
[2020-03-08] MEDS ORDERED: Iodixanol 320 (CONTRAST) 100 ML SDV ONE (10:35)
[2020-03-08] MEDS ORDERED: Heparin 2 UNITS/ML 1000 mls 1,000 ML IV ONE ×4 (10:35→13:29)
[2020-03-08] MEDS ORDERED: Lidocaine 1% VIAL 10 MG/ML VIAL ONE ×2 (10:35→13:29)
[2020-03-08] MEDS ORDERED: fentaNYL 100 mcg/2 ml 50 MCG/ML VIAL ONE ×4 (11:04→12:36)
[2020-03-08] MEDS ORDERED: Midazolam 5 mg/5 ml VIAL 1 mg/ml 5 ml VIAL (5 mg) ONE ×2 (11:04→12:36)
[2020-03-08] MEDS ORDERED: Heparin 5000 UNITS/ML 1 mL VIAL ONE (13:59)
[2020-03-08] MEDS ORDERED: Vancomycin 750 MG in NS 0.9% 250 ML IVPB ONE (16:00)
[2020-03-08] MEDS: Heparin 1,000 UNIT/ML 10 ml (10,000 UNITS) CATHLAB/DIALYSIS DIALYSIS ONE ×2 (16:00→16:45)
[2020-03-09] MEDS: Labetalol 300 mg TAB PO SCH ×3 (09:02→20:08)
[2020-03-09 09:10] LABS: ABS Basophils 0.1 10^3/ul (0-0.2); ABS Eosinophils 0.2 10^3/ul (0-0.6); ABS Lymphocytes 0.4 10^3/ul (1.0-4.8); ABS Monocytes 0.7 10^3/ul (0-0.8); ABS Neutrophils 7.7 10^3/ul (1.5-7.7); Eosinophil % 2.6 %; Hematocrit 26 % (42-52); Hemoglobin 8.9 g/dL (14.0-18.0); Lymphocyte % 4.9 %; Mean Corpuscular HGB Conc 34 g/dL (31-36); Mean Corpuscular Hemoglobin 30 pg (27-31); Mean Corpuscular Volume 87 fL (80-94); Mean Platelet Volume 6.7 fL (7.4-10.4); Platelet Count 176 10^3/uL (150-450); Red Cell Distribution Width 16 % (10-15); White Blood Count 9.1 10^3/uL (3.5-10.8)
[2020-03-09 09:29] LABS: BUN/Creatinine Ratio 4.9 (8-20); Calcium 9.6 mg/dL (8.6-10.3); EGFR African American 10.3 (>60); EGFR Non-African American 8.5 (>60); Magnesium 1.9 mg/dL (1.9-2.7)
[2020-03-09 09:32] LABS: Potassium 5.4 mmol/L (3.5-5.0)
[2020-03-09] MEDS: Heparin 1,000 UNIT/ML 10 ml (10,000 UNITS) CATHLAB/DIALYSIS DIALYSIS ONE ×4 (10:02→14:29)
[2020-03-10] MEDS: Labetalol 300 mg TAB PO SCH (08:48)
[2020-03-10] MEDS ORDERED: Vancomycin 750 MG in NS 0.9% 250 ML IVPB ONE (09:00)
[2020-03-10 09:40] VITALS: BP 145/74
== END 2020-03-10 11:10 | disposition home or self-care (01) | DRG 189 ==
LOC: ED 14:54 → ICU 16:18 → MED 03-03 16:12
PROVIDERS: ADMIT Internal Medicine; ATTEND Internal Medicine

== ENCOUNTER 2020-04-06 01:48 | Observation (INO) ==
[2020-04-06] MEDS ORDERED: Furosemide 100 mg/10 ml IV VIAL IV ONE (02:06)
[2020-04-06] MEDS ORDERED: nitroGLYCERIN DRIP 25,000 MCG/250 ML BTL IV ONE (02:09)
[2020-04-06 02:43] LABS: ABS Basophils 0.1 10^3/ul (0-0.2); ABS Eosinophils 0.3 10^3/ul (0-0.6); ABS Lymphocytes 0.4 10^3/ul (1.0-4.8); ABS Monocytes 0.5 10^3/ul (0-0.8); ABS Neutrophils 9.4 10^3/ul (1.5-7.7); Eosinophil % 3.1 %; Hematocrit 23 % (42-52); Hemoglobin 7.6 g/dL (14.0-18.0); Lymphocyte % 4.1 %; Mean Corpuscular HGB Conc 33 g/dL (31-36); Mean Corpuscular Hemoglobin 27 pg (27-31); Mean Corpuscular Volume 82 fL (80-94); Mean Platelet Volume 6.1 fL (7.4-10.4); Platelet Count 159 10^3/uL (150-450); Red Blood Count 2.81 10^6 /uL (4.18-5.48); Red Cell Distribution Width 17 % (10-15); White Blood Count 10.8 10^3/uL (3.5-10.8)
[2020-04-06 03:05] LABS: ALT 8 U/L (7-52); AST 8 U/L (13-39); Albumin 3.7 g/dL (3.2-5.2); Albumin/Globulin Ratio 1.4 (1-3); Alkaline Phosphatase 88 U/L (34-104); BUN/Creatinine Ratio 7.9 (8-20); Blood Urea Nitrogen 77 mg/dL (6-24); CO2 Carbon Dioxide 20 mmol/L (22-32); Calcium 9.5 mg/dL (8.6-10.3); Chloride 94 mmol/L (101-111); EGFR African American 6.8 (>60); EGFR Non-African American 5.6 (>60); Globulin 2.7 g/dL (2-4); Glucose 93 mg/dL (70-100); Sodium 130 mmol/L (135-145); Total Protein 6.4 g/dL (6.4-8.9)
[2020-04-06 03:37] LABS: Troponin I 0.06 ng/mL (<0.03)
[2020-04-06 03:38] LABS: Anion Gap 16 mmol/L (2-11)
[2020-04-06] MEDS ORDERED: Sodium Bicarbonate 8.4% VIAL 1 MEQ/ML 50 ml VIAL (50 meq) IV ONE (03:53)
[2020-04-06] MEDS ORDERED: CALCIUM GLUCONATE 1GM/50ML NS 1 GM/50 ML BAG IV ONE (03:54)
[2020-04-06] MEDS ORDERED: Patiromer POWDER 8.4 GM PAK PO SCH (04:00)
[2020-04-06 06:19] VITALS: BP 173/91
[2020-04-06 06:28] LABS: Vancomycin Random 15.7 mcg/mL
[2020-04-06] MEDS ORDERED: Lorazepam PYXIS KEY PRN (07:29)
[2020-04-06] MEDS ORDERED: LORazepam 2 mg VIAL 1 ml IV PUSH PRN (07:29)
[2020-04-06] MEDS ORDERED: CMC:Rosuvastatin 20 mg TAB (NF) PO SCH (09:00)
[2020-04-06] MEDS ORDERED: Labetalol 300 mg TAB PO SCH (09:00)
[2020-04-06] MEDS ORDERED: Sodium Bicarb 650 mg (ANTACID) TAB PO SCH (09:00)
[2020-04-06] MEDS ORDERED: Ferrous Sulfate DROPS 15 MG/ML PO SCH (09:00)
[2020-04-06 10:53] LABS: C Reactive Protein 143.14 mg/L (<8.01)
[2020-04-06] MEDS ORDERED: Vancomycin 750 MG in NS 0.9% 250 ml 250 ML IVPB SCH (18:00)
== END 2020-04-06 08:30 | disposition left against medical advice (07) | DRG 189 ==
LOC: ED 01:48 → INTOOBSV 03:33 → ICU 03:33
PROVIDERS: ADMIT Internal Medicine; ATTEND Internal Medicine

== ENCOUNTER 2020-10-18 08:36 | Inpatient (IN) ==
[2020-10-18] MEDS ORDERED: NS 0.9% 1000 ml BAG 1,000 ML IV ONE (09:09)
[2020-10-18 10:35] LABS: Hematocrit 28 % (42-52); Hemoglobin 9.2 g/dL (14.0-18.0); Mean Corpuscular HGB Conc 33 g/dL (31-36); Mean Corpuscular Hemoglobin 28 pg (27-31); Mean Corpuscular Volume 84 fL (80-94); Red Blood Count 3.34 10^6 /uL (4.18-5.48); Red Cell Distribution Width 17 % (10-15)
[2020-10-18 10:48] LABS: ALT 4 U/L (7-52); Albumin 3.3 g/dL (3.2-5.2); Albumin/Globulin Ratio 1.4 (1-3); Alkaline Phosphatase 74 U/L (35-149); Blood Urea Nitrogen 57 mg/dL (6-24); C Reactive Protein 20.82 mg/L (<8.01); CO2 Carbon Dioxide 29 mmol/L (22-32); Calcium 11.4 mg/dL (8.6-10.3); Chloride 96 mmol/L (101-111); Creatine Kinase 67 U/L (10-223); EGFR African American 5.1 (>60); EGFR Non-African American 4.2 (>60); Globulin 2.3 g/dL (2-4); Glucose 99 mg/dL (70-100); Sodium 130 mmol/L (135-145); Total Protein 5.6 g/dL (6.4-8.9)
[2020-10-18 10:57] LABS: ABS Eosinophils 0.3 10^3/ul (0-0.6); ABS Lymphocytes 0.5 10^3/ul (1.0-4.8); ABS Monocytes 0.6 10^3/ul (0-0.8); ABS Neutrophils 3.5 10^3/ul (1.5-7.7); Eosinophil % 6.2 %; Nucleated Red Blood Cells % 0.1
[2020-10-18 11:08] LABS: Alcohol, S < 10 mg/dL (<10)
[2020-10-18 11:15] LABS: Mean Platelet Volume 6.4 fL (7.4-10.4); Platelet Count 90 10^3/uL (150-450)
[2020-10-18 11:22] LABS: Anion Gap 5 mmol/L (2-11)
[2020-10-18 12:47] LABS: Potassium Redraw 6.5 mmol/L (3.5-5.0)
[2020-10-18 15:09] LABS: Hepatitis B Surface Antigen Nonreactive (Nonreactive)
[2020-10-18 15:26] LABS: Hepatitis B Surface Ab Immune (Immune)
[2020-10-18 16:04] LABS: Magnesium 2.5 mg/dL (1.9-2.7)
[2020-10-18] MEDS: Heparin 1,000 UNIT/ML 10 ml (10,000 UNITS) CATHLAB/DIALYSIS DIALYSIS ONE ×4 (16:14→19:58)
[2020-10-18 16:27] LABS: TSH Ultra Thyroid Stim Horm 2.01 mcIU/mL (0.34-5.60)
[2020-10-18 22:14] LABS: Urine Benzodiazepine Screen None Detected (None Detect); Urine Cannabinoids Screen None Detected (None Detect); Urine Opiates Screen None Detected (None Detect)
[2020-10-19 06:47] LABS: Hematocrit 30 % (42-52); Hemoglobin 9.9 g/dL (14.0-18.0); Mean Corpuscular HGB Conc 33 g/dL (31-36); Mean Corpuscular Hemoglobin 28 pg (27-31); Mean Corpuscular Volume 83 fL (80-94); Platelet Count 91 10^3/uL (150-450); Red Blood Count 3.61 10^6 /uL (4.18-5.48); Red Cell Distribution Width 16 % (10-15); White Blood Count 4.9 10^3/uL (3.5-10.8)
[2020-10-19 07:33] LABS: Calcium 10.9 mg/dL (8.6-10.3); Magnesium 1.9 mg/dL (1.9-2.7)
[2020-10-19 07:39] LABS: EGFR Non-African American 7.4 (>60)
[2020-10-19 07:42] LABS: Potassium 5.3 mmol/L (3.5-5.0)
[2020-10-19] MEDS ORDERED: Labetalol 300 mg TAB PO SCH (09:00)
[2020-10-19] MEDS ORDERED: Heparin 1,000 UNIT/ML 10 ml (10,000 UNITS) CATHLAB/DIALYSIS DIALYSIS ONE (10:00)
[2020-10-19] MEDS ORDERED: Enoxaparin 30 MG/0.3 ML SYR SUBCUT SCH (10:00)
[2020-10-19 16:35] VITALS: BP 132/58
== END 2020-10-19 17:31 | disposition home or self-care (01) | DRG 640 ==
LOC: ED 08:36 → MED 14:33
PROVIDERS: ADMIT Hospitalist; ATTEND Pediatrics